=== PATIENT | female | born 1965 | race Caucasian/White ===

== ENCOUNTER 2017-05-15 19:59 | Emergency (ER) | payer MEDICAID, MEDICARE, SELFPAY ==
[~2017-05-15] VITALS: Ht 157.5 cm; Wt 63.2 kg
[~2017-05-15 19:59] MED LIST: CEFT250T OR; COMBVENT INH; MAGN500T2 OR
[2017-05-15] MEDS ORDERED: dexameTHASONE 20 MG/5 ML VIAL (J1100) IV ONE (21:30)
[2017-05-15] MEDS ORDERED: IPRATROPIUM 0.5MG/ALBUTEROL 2.5MG INH SOL UD 3ML (DUONEB)(J7620) NEB ONE (21:30)
[2017-05-15 21:44] LABS: ANION GAP 12 MEQ/L (8-16); BLOOD UREA NITROGEN 6 MG/DL (7-18); CALCIUM LEVEL 9.2 MG/DL (8.5-10.1); CARBON DIOXIDE LEVEL 22 MEQ/L (21-32); CHLORIDE LEVEL 108 MEQ/L (98-107); CREATININE FOR GFR 0.51 MG/DL (0.55-1.02); GLOMERULAR FILTRATION RATE > 60.0 (>51); GLUCOSE, FASTING 121 MG/DL (70-105); POTASSIUM SERUM 3.2 MEQ/L (3.5-5.1); SODIUM LEVEL 142 MEQ/L (136-145)
[2017-05-15 21:46] LABS: BASO % 0.7 % (0.0-1.0); EOS % 0.7 % (0.0-3.0); LARGE UNSTAINED CELL # 0.4 K/mm3 (0.0-0.4); LARGE UNSTAINED CELL % 7.5 % (0.0-4.0); LYMPH # 1.5 K/mm3 (1.5-4.5); LYMPH % 29.9 % (24.0-44.0); MEAN CORPUSCULAR HGB CONC 35.9 g/dl (32.0-36.5); MEAN CORPUSCULAR VOLUME 94.5 fl (80.0-96.0); MONO # 0.2 K/mm3 (0.0-0.8); MONO % 3.6 % (0.0-5.0); NEUTROPHILS # 2.9 K/mm3 (1.8-7.7); NEUTROPHILS % 57.7 % (36.0-66.0); PLATELET COUNT, AUTOMATED 216 k/mm3 (150-450); RED CELL DISTRIBUTION WIDTH 13.1 % (11.5-14.5); WHITE BLOOD COUNT 5.1 K/mm3 (4.0-10.0)
[2017-05-15 21:47] LABS: INR 0.95
[2017-05-15 22:21] VITALS: O2SAT 95
[2017-05-15 22:29] LABS: ABG BASE EXCESS -4.8 (-2.0-2.0); ABG HCO3 18.4 MEQ/L (22.0-26.0); ABG PARTIAL PRESSURE CO2 29.9 mmHg (35.0-45.0); ABG PARTIAL PRESSURE O2 74.3 mmHg (75.0-100.0); ABG STANDARD HCO3 20.5 MEQ/L (22.0-26.0); ABG TOTAL CO2 19.4 MEQ/L (22.0-29.0); ABG pH (ARTERIAL) 7.408 UNITS (7.350-7.450)
[2017-05-15] MEDS ORDERED: ISOVUE-370 76% 100ML VIAL (Q9967) As Ordered ONE (22:57)
[2017-05-15] MEDS ORDERED: guaiFENesin DM LIQ 10ML UD PO ONE (23:30)
[2017-05-15 23:40] VITALS: BP 124/83
[2017-05-16] MEDS ORDERED: NORCO, ANEXSIA 5/325MG TABLET (HYDROcodone/ACETAMINOPHEN) PO ONE (00:45)
[2017-05-16] MEDS ORDERED: PRED20TA PO (00:49)
--- NOTE | 2017-05-16 00:50 | REPUSA ---
CLINICAL HISTORY: Suspected left pulmonary mass. TECHNIQUE: Multiple axial CT images were obtained through the thorax with IV contrast material. COMMENTS: Comparison is made to the prior exam performed on 01/05/2011. Complete dissolution of right lower lobe pulmonary consolidation/infiltrates. There is no evidence of pleural or parenchymal mass. There are no pleural effusions. There is no evid ence of hilar or mediastinal lymphadenopathy. The heart and great vessels are within normal limits. The visualized portions of the liver are of uniform attenuation without mass or defect. There is no i ntra or extrahepatic biliary ductal dilatation. The spleen is unremarkable. The visualized pancreas i s of normal contour and attenuation characteristics. There is no evidence of adrenal mass. The visual ized portions of the kidneys present no abnormalities. The bony structures are free of lytic or blastic lesions. Post contrast images demonstrate no evidence for abnormal enhancement. IMPRESSION: Complete resolution of right lower lobe pulmonary consolidation/infiltrates. Thank you for your kind referral of this patient.
--- NOTE | 2017-05-16 07:43 | REP ---
PA and lateral chest: Comparison is 08/19/2016. The lung rodrigez are clear. The cardiac size is normal The shayan, mediastinum, and bony thorax are unremarkable. Impression: Negative PA and lateral chest. There is no interval change. Signed by Federico Colon MD 05/16/2017 07:36 A
--- NOTE | 2017-05-16 08:28 | ECGEPIP ---
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
== END 2017-05-16 01:33 | disposition home or self-care (01) ==
LOC: EDBD 19:59 → M ED 19:59
DX: J44.9 Chronic obstructive pulmonary disease, unspecified (principal); Z88.0 Allergy status to penicillin; Z88.8 Allergy status to other drugs, medicaments and biological substances; F17.210 Nicotine dependence, cigarettes, uncomplicated
CPT/HCPCS: 36600; 71020; 71260; 80048; 82550; 82553; 82803; 85025; 85610; 85730; 93005; 94640; 96374; 99284; J1100; Q9967

== ENCOUNTER 2017-08-29 19:49 | Emergency (ER) | payer SELFPAY ==
[2017-08-29 21:10] LABS: BEDSIDE GLUCOSE 102 MG/DL (70-105)
== END 2017-08-29 22:08 | disposition home or self-care (01) ==
LOC: M ED 19:49
DX: F10.220 Alcohol dependence with intoxication, uncomplicated (principal); I10 Essential (primary) hypertension; Z91.14 Patient's other noncompliance with medication regimen; F17.210 Nicotine dependence, cigarettes, uncomplicated
CPT/HCPCS: 99283

== ENCOUNTER 2017-11-16 03:03 | Inpatient (IN) | payer SELFPAY ==
[2017-11-16] MEDS: NS 1,000 ML IV ×2 (04:30→09:17)
[2017-11-16 04:47] LABS: BASO # 0.1 10^3/uL (0.0-0.2); BASO % 0.6 % (0.0-1.0); EOS # 0.1 10^3/uL (0.0-0.50); EOS % 1.2 % (0.0-3.0); HEMATOCRIT 46.2 % (36.0-47.0); HEMOGLOBIN 15.7 g/dl (12.0-16.0); IMMATURE GRANULOCYTE % 0.2 % (0-3.0); LYMPH # 2.6 10^3/uL (1.5-4.5); LYMPH % 31.8 % (24.0-44.0); MEAN CORPUSCULAR HEMOGLOBIN 31.7 pg (27.0-33.0); MEAN CORPUSCULAR VOLUME 93.3 fl (80.0-96.0); MONO # 0.6 10^3/uL (0.0-0.8); NEUTROPHILS # 4.8 10^3/uL (1.8-7.7); NEUTROPHILS % 59.2 % (36.0-66.0); PLATELET COUNT, AUTOMATED 300 10^3/uL (150-450); RED BLOOD COUNT 4.95 10^6/uL (4.00-5.40); RED CELL DISTRIBUTION WIDTH 12.7 % (11.5-14.5); WHITE BLOOD COUNT 8.2 10^3/uL (4.0-10.0)
[2017-11-16 05:11] LABS: ALBUMIN 3.6 GM/DL (3.2-5.2); ALBUMIN/GLOBULIN RATIO 0.97 (1.00-1.93); ALKALINE PHOSPHATASE 137 U/L (45-117); ALT/SGPT 310 U/L (12-78); ANION GAP 10 MEQ/L (8-16); AST/SGOT 212 U/L (7-37); BILIRUBIN,DIRECT 0.2 MG/DL (0.0-0.2); BILIRUBIN,TOTAL 0.4 MG/DL (0.2-1.0); BLOOD UREA NITROGEN 4 MG/DL (7-18); CALCIUM LEVEL 8.5 MG/DL (8.5-10.1); CARBON DIOXIDE LEVEL 23 MEQ/L (21-32); CHLORIDE LEVEL 109 MEQ/L (98-107); CPK CREATINE PHOSPHOKINASE 49 U/L (26-192); CREATININE FOR GFR 0.54 MG/DL (0.55-1.30); ETHYL ALCOHOL (ETHANOL) 0.245 % (0.000-0.010); GLOMERULAR FILTRATION RATE > 60.0 (>51); GLUCOSE, FASTING 108 MG/DL (70-100); POTASSIUM SERUM 3.5 MEQ/L (3.5-5.1); SALICYLATE LEVEL 5.5 MG/DL (5.0-30.0); SODIUM LEVEL 142 MEQ/L (136-145); TOTAL PROTEIN 7.3 GM/DL (6.4-8.2); TROPONIN I < 0.02 NG/ML (< 0.10)
[2017-11-16 05:16] LABS: AMMONIA 36 uMOL/L (<32)
[2017-11-16 05:16] LABS: CK-MB VALUE MASS 1.6 NG/ML (<3.6); MB/CK RELATIVE INDEX 3.26 (< OR =4)
[2017-11-16 05:22] LABS: ACETAMINOPHEN LEVEL < 2.0 UG/ML (10.0-30.0)
[2017-11-16 05:39] LABS: INR 0.99; PROTHROMBIN TIME 13.2 SECONDS (12.4-14.5)
[2017-11-16 05:40] LABS: PARTIAL THROMBOPLASTIN TIME 36.6 SECONDS (26.8-37.9)
[2017-11-16 06:12] LABS: AMPHETAMINES LEVEL URINE NEGATIVE (NEGATIVE); BARBITURATES URINE NEGATIVE (NEGATIVE); BENZODIAZEPINES URINE NEGATIVE (NEGATIVE); CANNABINOIDS URINE NEGATIVE (NEGATIVE); COCAINE METABOLITE URINE NEGATIVE (NEGATIVE); METHADONE URINE NEGATIVE (NEGATIVE); OPIATES URINE NEGATIVE (NEGATIVE); PHENCYCLIDINE URINE NEGATIVE (NEGATIVE)
[2017-11-16 08:31] LABS: ALBUMIN 3.5 GM/DL (3.2-5.2); ALBUMIN/GLOBULIN RATIO 0.95 (1.00-1.93); ALKALINE PHOSPHATASE 135 U/L (45-117); ALT/SGPT 329 U/L (12-78); AST/SGOT 253 U/L (7-37); BILIRUBIN,DIRECT 0.1 MG/DL (0.0-0.2); BILIRUBIN,TOTAL 0.3 MG/DL (0.2-1.0); TOTAL PROTEIN 7.2 GM/DL (6.4-8.2)
[2017-11-16] MEDS: OXAZEPAM 10 MG CAP PO (10:34)
[2017-11-16] MEDS: MULTIVITAMIN -ADULT INJECTION 10 ML, THIAMINE INJection 100 MG, FOLIC ACID 1 MG in NS 1... IV (11:00)
[2017-11-16] MEDS ORDERED: NICOTINE POLACRILEX 2 MG GUM PO (13:00)
[2017-11-16] MEDS: NICOTINE 7 MG/24 HR TRANSDERMAL TD (15:00)
[2017-11-16 16:06] LABS: AMMONIA 28 uMOL/L (<32)
[2017-11-16 16:08] LABS: ALBUMIN 3.1 GM/DL (3.2-5.2); ALBUMIN/GLOBULIN RATIO 0.91 (1.00-1.93); ALKALINE PHOSPHATASE 125 U/L (45-117); ALT/SGPT 293 U/L (12-78); AST/SGOT 211 U/L (7-37); BILIRUBIN,DIRECT 0.1 MG/DL (0.0-0.2); BILIRUBIN,TOTAL 0.3 MG/DL (0.2-1.0); TOTAL PROTEIN 6.5 GM/DL (6.4-8.2)
[2017-11-16] MEDS: HEPARIN SOD (PORCINE) 5000 UNITS/ML VIAL SQ (18:41)
[2017-11-17] MEDS: HEPARIN SOD (PORCINE) 5000 UNITS/ML VIAL SQ ×2 (00:17→07:38)
[2017-11-17 06:34] LABS: HEMOGLOBIN 13.8 g/dl (12.0-16.0); MEAN CORPUSCULAR HEMOGLOBIN 31.7 pg (27.0-33.0); MEAN CORPUSCULAR HGB CONC 33.7 g/dl (32.0-36.5); PLATELET COUNT, AUTOMATED 273 10^3/uL (150-450); RED BLOOD COUNT 4.36 10^6/uL (4.00-5.40); RED CELL DISTRIBUTION WIDTH 12.7 % (11.5-14.5); WHITE BLOOD COUNT 5.3 10^3/uL (4.0-10.0)
[2017-11-17 06:56] LABS: ALBUMIN 2.9 GM/DL (3.2-5.2); ALBUMIN/GLOBULIN RATIO 0.85 (1.00-1.93); ALKALINE PHOSPHATASE 120 U/L (45-117); ALT/SGPT 228 U/L (12-78); ANION GAP 6 MEQ/L (8-16); AST/SGOT 132 U/L (7-37); BILIRUBIN,DIRECT 0.2 MG/DL (0.0-0.2); BILIRUBIN,TOTAL 0.6 MG/DL (0.2-1.0); BLOOD UREA NITROGEN 6 MG/DL (7-18); CALCIUM LEVEL 8.5 MG/DL (8.5-10.1); CARBON DIOXIDE LEVEL 25 MEQ/L (21-32); CHLORIDE LEVEL 112 MEQ/L (98-107); CHOLESTEROL LEVEL 166 MG/DL (<200); CHOLESTEROL RISK RATIO 4.368 (<5); CREATININE FOR GFR 0.59 MG/DL (0.55-1.30); GLOMERULAR FILTRATION RATE > 60.0 (>51); GLUCOSE, FASTING 98 MG/DL (70-100); HDL CHOLESTEROL 38 MG/DL (>40); NON-HDL-C 128 MG/DL; POTASSIUM SERUM 3.4 MEQ/L (3.5-5.1); SODIUM LEVEL 143 MEQ/L (136-145); TOTAL PROTEIN 6.3 GM/DL (6.4-8.2); TRIGLYCERIDES LEVEL 125 MG/DL (<150)
[2017-11-17] MEDS: cloNIDine 0.2 MG TAB PO (07:37)
[2017-11-17] MEDS: amLODIPine 5 MG TAB PO (07:37)
[2017-11-17] MEDS: OXAZEPAM 15 MG CAP PO (07:38)
[2017-11-17] MEDS: THIAMINE 100 MG TAB PO (07:38)
[2017-11-17] MEDS: FOLIC ACID 1 MG TAB PO (07:39)
[2017-11-17] MEDS: MULTIVITAMINS/MINERALS THERAP 1 TAB PO ×2 (07:39→09:00)
[2017-11-17] MEDS: NICOTINE 7 MG/24 HR TRANSDERMAL TD (09:00)
[2017-11-18 10:31] LABS: HEPATITIS B SURFACE ANTIGEN NEGATIVE (NEGATIVE)
[2017-11-18 10:56] LABS: HEPATITIS B CORE ANTIBODY IGM NEGATIVE (NEGATIVE)
[2017-11-18 10:59] LABS: HEPATITIS A ANTIBODY IGM NEGATIVE (NEGATIVE)
[2017-11-18 11:08] LABS: HEPATITIS C VIRUS ABY INDEX > 11.0 INDEX (<0.8)
== END 2017-11-17 11:21 | disposition home or self-care (01) | DRG 280 ==
LOC: M ED 03:03 → M ED INP 09:13 → M MSPAV 16:18
DX: R94.5 Abnormal results of liver function studies (principal); I10 Essential (primary) hypertension; K70.10 Alcoholic hepatitis without ascites; F10.129 Alcohol abuse with intoxication, unspecified; M25.532 Pain in left wrist; F17.210 Nicotine dependence, cigarettes, uncomplicated; Z88.0 Allergy status to penicillin; Z88.6 Allergy status to analgesic agent

== ENCOUNTER 2017-12-26 19:34 | Emergency (ER) | payer MEDICARE, SELFPAY ==
[2017-12-26 20:45] LABS: ANION GAP 12 MEQ/L (8-16); BLOOD UREA NITROGEN 10 MG/DL (7-18); CALCIUM LEVEL 9.2 MG/DL (8.5-10.1); CARBON DIOXIDE LEVEL 22 MEQ/L (21-32); CHLORIDE LEVEL 111 MEQ/L (98-107); CREATININE FOR GFR 0.73 MG/DL (0.55-1.30); ETHYL ALCOHOL (ETHANOL) 0.328 % (0.000-0.010); GLOMERULAR FILTRATION RATE > 60.0 (>51); GLUCOSE, FASTING 110 MG/DL (70-100); POTASSIUM SERUM 4.1 MEQ/L (3.5-5.1); SODIUM LEVEL 145 MEQ/L (136-145)
[2017-12-26] MEDS: MULTIVITAMIN -ADULT INJECTION 10 ML, THIAMINE INJection 100 MG, FOLIC ACID 1 MG in NS 1... IV (21:14)
== END 2017-12-26 21:52 | disposition home or self-care (01) ==
LOC: M ED 19:34
DX: F10.20 Alcohol dependence, uncomplicated (principal); F10.129 Alcohol abuse with intoxication, unspecified; Z88.0 Allergy status to penicillin; Z88.6 Allergy status to analgesic agent
CPT/HCPCS: J3411

== ENCOUNTER 2018-07-24 11:49 | Emergency (ER) | payer SELFPAY, MEDICAID, MEDICARE ==
[2018-07-24 14:11] LABS: INFLUENZA A AMPLIFICATION NEGATIVE (NEGATIVE); INFLUENZA B AMPLIFICATION NEGATIVE (NEGATIVE)
== END 2018-07-24 14:24 | disposition home or self-care (01) ==
LOC: M ED 11:49
DX: J06.9 Acute upper respiratory infection, unspecified (principal); I10 Essential (primary) hypertension; E11.9 Type 2 diabetes mellitus without complications; F41.9 Anxiety disorder, unspecified; H54.3 Unqualified visual loss, both eyes; Z88.0 Allergy status to penicillin; Z88.8 Allergy status to other drugs, medicaments and biological substances
CPT/HCPCS: 71046

== ENCOUNTER 2018-10-18 12:21 | Emergency (ER) | payer MEDICAID, SELFPAY ==
[~2018-10-18] VITALS: Ht 157.5 cm; Wt 63.6 kg
[~2018-10-18 12:21] MED LIST changes: +MUCI600T37 PO; +PRED20TA PO
[2018-10-18] MEDS ORDERED: methylPREDNISolone INJ 125 MG/2 ML VIAL (J2930) IV ONE (12:45)
[2018-10-18] MEDS ORDERED: IPRATROPIUM 0.5MG/ALBUTEROL 2.5MG INH SOL UD 3ML (DUONEB)(J7620) NEB ONE (12:45)
[2018-10-18] MEDS ORDERED: ACETAMINOPHEN 325 MG TAB PO ONE (12:45)
[2018-10-18 12:52] LABS: BASO # 0.1 10^3/uL (0.0-0.2); BASO % 0.6 % (0.0-1.0); EOS % 0.3 % (0.0-3.0); HEMATOCRIT 44.7 % (36.0-47.0); HEMOGLOBIN 15.3 g/dl (12.0-15.5); LYMPH % 25.5 % (24.0-44.0); MEAN CORPUSCULAR HEMOGLOBIN 31.9 pg (27.0-33.0); MEAN CORPUSCULAR HGB CONC 34.2 g/dl (32.0-36.5); MEAN CORPUSCULAR VOLUME 93.1 fl (80.0-96.0); MONO # 0.8 10^3/uL (0.0-0.8); MONO % 10.3 % (0.0-5.0); NEUTROPHILS # 4.9 10^3/uL (1.8-7.7); NEUTROPHILS % 62.8 % (36.0-66.0); PLATELET COUNT, AUTOMATED 272 10^3/uL (150-450); WHITE BLOOD COUNT 7.9 10^3/uL (4.0-10.0)
[2018-10-18] MEDS ORDERED: ACETAMINOPHEN/CODEINE 300MG/30MG 12.5 ML UDC PO ONE (13:00)
[2018-10-18] MEDS ORDERED: ONDANSETRON 4MG/2ML VIAL (J2405) IV ONE (13:00)
[2018-10-18 13:04] LABS: INR 0.98; PROTHROMBIN TIME 13.1 SECONDS (12.1-14.4)
--- NOTE | 2018-10-18 13:10 | REP ---
PA and lateral chest: Comparison is 07/24/2018. The the patient is rotated. The lung rodrigez are clear. Cardiac size is normal. The shayan, mediastinum, skeletal structures are unremarkable. Impression: Negative PA and lateral chest. There is no interval change. Electronically Signed by Federico Colon MD 10/18/2018 01:02 P
[2018-10-18 13:19] LABS: BLOOD UREA NITROGEN 7 MG/DL (7-18); CALCIUM LEVEL 8.6 MG/DL (8.5-10.1); CARBON DIOXIDE LEVEL 21 MEQ/L (21-32); CHLORIDE LEVEL 107 MEQ/L (98-107); CREATININE FOR GFR 0.59 MG/DL (0.55-1.30); GLOMERULAR FILTRATION RATE > 60.0 (>51); GLUCOSE, FASTING 102 MG/DL (70-100); POTASSIUM SERUM 4.1 MEQ/L (3.5-5.1); SODIUM LEVEL 142 MEQ/L (136-145)
[2018-10-18 13:23] LABS: INFLUENZA A AMPLIFICATION NEGATIVE (NEGATIVE); INFLUENZA B AMPLIFICATION NEGATIVE (NEGATIVE)
[2018-10-18 13:24] LABS: ABG BASE EXCESS -4.4 (-2.0-2.0); ABG HCO3 19.3 MEQ/L (22.0-26.0); ABG O2 SATURATION 92.6 % (95.0-99.0); ABG PARTIAL PRESSURE CO2 32.3 mmHg (35.0-45.0); ABG PARTIAL PRESSURE O2 68.8 mmHg (75.0-100.0); ABG STANDARD HCO3 20.7 MEQ/L (22.0-26.0); ABG TOTAL CO2 20.3 MEQ/L (22.0-29.0); ABG pH (ARTERIAL) 7.395 UNITS (7.350-7.450)
[2018-10-18] MEDS ORDERED: AVEL1TAB3 PO (13:47)
[2018-10-18] MEDS ORDERED: TESS100C PO (13:47)
[2018-10-18] MEDS ORDERED: PROAAER10 INH (13:47)
[2018-10-18 14:00] VITALS: BP 152/85
== END 2018-10-18 14:10 | disposition home or self-care (01) ==
LOC: EDBD 12:21 → M ED 12:21
DX: J98.01 Acute bronchospasm (principal); J44.1 Chronic obstructive pulmonary disease with (acute) exacerbation; Z85.3 Personal history of malignant neoplasm of breast; F10.10 Alcohol abuse, uncomplicated; Z72.0 Tobacco use; Z88.6 Allergy status to analgesic agent; Z88.0 Allergy status to penicillin
CPT/HCPCS: 36600; 71046; 80048; 82803; 85025; 85610; 87040; 87502; 94640; 96374; 96375; 99284; J2405; J2930

== ENCOUNTER 2019-07-30 22:31 | Emergency (ER) | payer MEDICAID, SELFPAY ==
[~2019-07-30 22:31] MED LIST changes: +AVEL1TAB3 PO; +PROAAER10 INH; +TESS100C PO
[2019-07-30 22:43] VITALS: BP 159/87
[2019-07-30] MEDS ORDERED: methylPREDNISolone INJ 125 MG/2 ML VIAL (J2930) IV ONE (22:45)
[2019-07-30 23:04] LABS: BASO # 0.1 10^3/uL (0.0-0.2); BASO % 0.7 % (0.0-1.0); EOS # 0.1 10^3/uL (0.0-0.5); EOS % 0.9 % (0.0-3.0); HEMATOCRIT 48.7 % (36.0-47.0); HEMOGLOBIN 16.3 g/dl (12.0-15.5); LYMPH % 57.2 % (24.0-44.0); MEAN CORPUSCULAR HGB CONC 33.5 g/dl (32.0-36.5); MEAN CORPUSCULAR VOLUME 92.6 fl (80.0-96.0); MONO # 0.4 10^3/uL (0.0-0.8); MONO % 5.9 % (0.0-5.0); NEUTROPHILS # 2.4 10^3/uL (1.5-8.5); PLATELET COUNT, AUTOMATED 208 10^3/uL (150-450); RED BLOOD COUNT 5.26 10^6/uL (4.00-5.40); WHITE BLOOD COUNT 6.9 10^3/uL (4.0-10.0)
[2019-07-30] MEDS: IPRATROPIUM 0.5MG/ALBUTEROL 2.5MG INH SOL UD 3ML (DUONEB)(J7620) NEB PRN ×2 (23:07→23:55)
[2019-07-30 23:21] LABS: INR 1.04; PROTHROMBIN TIME 13.3 SECONDS (11.8-14.0)
[2019-07-30 23:36] LABS: ALBUMIN 2.8 GM/DL (3.2-5.2); ALT/SGPT 167 U/L (12-78); BILIRUBIN,DIRECT < 0.1 MG/DL (0.0-0.2); BILIRUBIN,TOTAL 0.2 MG/DL (0.2-1.0); BLOOD UREA NITROGEN 6 MG/DL (7-18); CALCIUM LEVEL 7.4 MG/DL (8.5-10.1); CARBON DIOXIDE LEVEL 22 MEQ/L (21-32); CHLORIDE LEVEL 112 MEQ/L (98-107); CK-MB VALUE MASS 1.5 NG/ML (<3.6); CPK CREATINE PHOSPHOKINASE 30 U/L (26-192); CREATININE FOR GFR 0.47 MG/DL (0.55-1.30); GLOMERULAR FILTRATION RATE > 60.0 (>51); GLUCOSE, FASTING 88 MG/DL (70-100); POTASSIUM SERUM 3.2 MEQ/L (3.5-5.1); SODIUM LEVEL 142 MEQ/L (136-145); TOTAL PROTEIN 6.3 GM/DL (6.4-8.2); TROPONIN I < 0.02 NG/ML (< 0.10)
[2019-07-30 23:40] LABS: INFLUENZA A AMPLIFICATION NEGATIVE (NEGATIVE); INFLUENZA B AMPLIFICATION NEGATIVE (NEGATIVE)
[2019-07-31] MEDS ORDERED: POTASSIUM CHLORIDE 10 MEQ SR TABLET PO ONE
--- NOTE | 2019-07-31 05:49 | ECGEPIP ---
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
--- NOTE | 2019-07-31 08:23 | REP ---
Clinical: Cough and dyspnea . Comparison: 10/18/2018 . Technique: PA and lateral. Findings: The mediastinum and cardiac silhouette are normal. The lung rodrigez are clear and without acute consolidation, effusion, or pneumothorax. The skeletal structures are intact and normal. Impression: 1. No acute cardiopulmonary process. Electronically Signed by Blake Mack MD 07/31/2019 08:16 A
== END 2019-07-31 00:26 | disposition left against medical advice (07) ==
LOC: M ED 22:31
DX: R05 Cough (principal); I10 Essential (primary) hypertension; F10.10 Alcohol abuse, uncomplicated; Z87.19 Personal history of other diseases of the digestive system; F17.200 Nicotine dependence, unspecified, uncomplicated; Z88.0 Allergy status to penicillin; Z88.6 Allergy status to analgesic agent; Z53.21 Procedure and treatment not carried out due to patient leaving prior to being seen by health care provider
CPT/HCPCS: 36415; 71046; 80048; 80076; 82550; 82553; 84443; 84484; 85025; 85610; 87502; 93005; 93041; 94640; 94760; 96374; 99284; J2930

== ENCOUNTER 2019-08-08 22:39 | Emergency (ER) | payer SELFPAY | END 2019-08-08 22:59 | disposition left against medical advice (07) | LOC: M ED 22:39 | DX: R68.89 Other general symptoms and signs (principal); Z53.21 Procedure and treatment not carried out due to patient leaving prior to being seen by health care provider ==

== ENCOUNTER 2019-09-28 19:49 | Emergency (ER) | payer SELFPAY ==
[~2019-09-28] VITALS: Ht 160 cm; Wt 63.6 kg
[2019-09-28 21:05] VITALS: BP 148/87
--- NOTE | 2019-09-28 22:10 | REPVR ---
PROCEDURE INFORMATION: Exam: CT Chest Without Contrast Exam date and time: 09/28/2019 9:55 PM Age: 54 years old Clinical indication: Chest pain; Additional info: Ant rib eval TECHNIQUE: Imaging protocol: Computed tomography of the chest without contrast. 3D rendering: MIP and/or 3D reconstructed images were created by the technologist. Radiation optimization: All CT scans at this facility use at least one of these dose optimization techniques: automated exposure control; mA and/or kV adjustment per patient size (includes targeted exams where dose is matched to clinical indication); or iterative reconstruction. COMPARISON: CT Chest with contrast 05/15/2017 11:48 PM FINDINGS: Lungs: Calcified granuloma superior segment right lower lobe. Scattered noncalcified peripheral pulmonary parenchymal nodules measuring less than 3 mm, findings likely postinflammatory. No follow-up suggested. Pleural space: Unremarkable. No pneumothorax. No pleural effusion. Heart: There is mild atherosclerotic calcification of the coronary arteries. Aorta: The aorta demonstrates mild atherosclerotic calcification. Lymph nodes: Unremarkable. No enlarged lymph nodes. Liver: Hepatic steatosis. Bones/joints: Unremarkable. No acute fracture. Soft tissues: Unremarkable. IMPRESSION: 1. No acute findings. 2. Findings consistent with remote intrathoracic granulomatous infection. Electronically signed by: Oscar Blue On 09/28/2019 22:09:50 PM
--- NOTE | 2019-09-29 02:10 | REP ---
Clinical: Right shoulder pain . Technique: Internal rotation, external rotation, and Y view. Findings: No acute fracture or dislocation. The acromioclavicular and glenohumeral joints are intact. No periarticular calcifications or degenerative changes are appreciated. Sub acromial space is normal. Surrounding soft tissues are unremarkable. Impression: Normal right shoulder radiographs. Electronically Signed by Blake Mack MD 09/29/2019 02:01 A
--- NOTE | 2019-09-29 02:11 | REP ---
Clinical: Dyspnea . Comparison: 07/30/2019 . Technique: PA and lateral. Findings: The mediastinum and cardiac silhouette are normal. The lung rodrigez are clear and without acute consolidation, effusion, or pneumothorax. The skeletal structures are intact and normal. Impression: 1. No acute cardiopulmonary process. Electronically Signed by Blake Mack MD 09/29/2019 02:02 A
== END 2019-09-28 22:49 | disposition left against medical advice (07) ==
LOC: M ED 19:49 → EDBD 19:49 → M ED 22:49
DX: S20.219A Contusion of unspecified front wall of thorax, initial encounter (principal); W00.9XXA Unspecified fall due to ice and snow, initial encounter; Y92.410 Unspecified street and highway as the place of occurrence of the external cause; Y93.9 Activity, unspecified; Y99.9 Unspecified external cause status; J44.9 Chronic obstructive pulmonary disease, unspecified; F10.20 Alcohol dependence, uncomplicated; F17.200 Nicotine dependence, unspecified, uncomplicated; Z88.0 Allergy status to penicillin; Z88.6 Allergy status to analgesic agent; Z53.21 Procedure and treatment not carried out due to patient leaving prior to being seen by health care provider

== ENCOUNTER 2019-09-30 20:50 | Emergency (ER) | payer SELFPAY ==
[~2019-09-30] VITALS: Ht 160 cm; Wt 6.6 kg
[2019-09-30 21:09] VITALS: BP 159/93
== END 2019-09-30 22:51 | disposition left against medical advice (07) ==
LOC: M ED 20:50
DX: Z53.21 Procedure and treatment not carried out due to patient leaving prior to being seen by health care provider (principal)

== ENCOUNTER 2019-10-07 21:33 | Emergency (ER) | payer SELFPAY ==
[~2019-10-07] VITALS: Ht 157.5 cm; Wt 65.7 kg
[2019-10-07 23:29] VITALS: BP 116/84
--- NOTE | 2019-10-08 07:49 | REP ---
Clinical: Trauma . Comparison: 09/28/2019 . Technique: PA and lateral. Findings: The mediastinum and cardiac silhouette are normal. The lung rodrigez are clear and without acute consolidation, effusion, or pneumothorax. The skeletal structures are intact and normal. Impression: 1. No acute cardiopulmonary process. Electronically Signed by Blake Mack MD 10/08/2019 07:40 A
--- NOTE | 2019-10-08 07:50 | REP ---
Clinical: Trauma. Technique: AP and lateral views of the right humerus. Findings: No acute fracture or dislocation. Skeletal structures, joint spaces, and surrounding soft tissues are normal. Impression: No acute fracture or dislocation. Electronically Signed by Blake Mack MD 10/08/2019 07:42 A
--- NOTE | 2019-10-08 07:50 | REP ---
Clinical: Trauma. Technique: AP and lateral views of the right forearm. Findings: No acute fracture or dislocation. Skeletal structures, joint spaces, and surrounding soft tissues are normal. No subcutaneous emphysema or foreign body. Impression: No acute fracture or dislocation. Electronically Signed by Blake Mack MD 10/08/2019 07:42 A
--- NOTE | 2019-10-08 07:52 | REP ---
Clinical: Trauma . Technique: Internal rotation, external rotation, and Y view right shoulder . Findings: No acute fracture or dislocation. The acromioclavicular and glenohumeral joints are intact. No periarticular calcifications or degenerative changes are appreciated. Sub acromial space is normal. Surrounding soft tissues are unremarkable. Impression: Normal right shoulder radiographs. Electronically Signed by Blake Mack MD 10/08/2019 07:43 A
== END 2019-10-07 23:38 | disposition home or self-care (01) ==
LOC: M ED 21:33
DX: S40.011A Contusion of right shoulder, initial encounter (principal); W00.9XXA Unspecified fall due to ice and snow, initial encounter; Y92.9 Unspecified place or not applicable; Y93.9 Activity, unspecified; Y99.9 Unspecified external cause status; I10 Essential (primary) hypertension; F10.10 Alcohol abuse, uncomplicated; Z87.19 Personal history of other diseases of the digestive system; Z88.0 Allergy status to penicillin; Z88.6 Allergy status to analgesic agent

== ENCOUNTER 2020-06-14 23:53 | Emergency (ER) | payer SELFPAY ==
[~2020-06-14] VITALS: Ht 160 cm; Wt 59.1 kg
[2020-06-15] MEDS ORDERED: AZIT-12 PO (00:54)
[2020-06-15] MEDS ORDERED: PRED20TA PO (00:54)
[2020-06-15] MEDS ORDERED: predniSONE 20 MG TAB PO ONE (01:00)
[2020-06-15] MEDS ORDERED: AZITHROMYCIN 250MG TABLET PO ONE (01:00)
[2020-06-15] MEDS ORDERED: ALBUTEROL 90 MCG/ACT 8GM HFA INHALER INH ONE (01:00)
[2020-06-15 01:07] VITALS: BP 135/93
== END 2020-06-15 01:11 | disposition home or self-care (01) ==
LOC: M ED 23:53
DX: J20.9 Acute bronchitis, unspecified (principal); S50.869A Insect bite (nonvenomous) of unspecified forearm, initial encounter; W57.XXXA Bitten or stung by nonvenomous insect and other nonvenomous arthropods, initial encounter; Y92.9 Unspecified place or not applicable; Y93.9 Activity, unspecified; Y99.9 Unspecified external cause status; F17.200 Nicotine dependence, unspecified, uncomplicated; Z88.0 Allergy status to penicillin; Z88.6 Allergy status to analgesic agent

== ENCOUNTER 2020-07-25 18:27 | Emergency (ER) | payer MEDICAID, SELFPAY ==
[~2020-07-25] VITALS: Ht 157.5 cm; Wt 61.4 kg
[~2020-07-25 18:27] MED LIST changes: +AZIT-12 PO
[2020-07-25] MEDS ORDERED: methylPREDNISolone 125MG 2ML VIAL IV ONE (18:45)
[2020-07-25] MEDS: COMBIVENT RESPIMAT 100-20MCG INHALER 4GM INH SCH ×3 (18:50→19:25)
--- NOTE | 2020-07-25 18:55 | REP ---
INDICATION: DYSPNEA/COUGH. COMPARISON: 10/07/2019 FINDINGS: The technique utilized in obtaining the radiograph has magnified the cardiac silhouette and accentuated the interstitial markings. The superior mediastinal structures are midline. The cardiac silhouette is unremarkable in size, shape, and position. The diaphragmatic surfaces of the lungs are regular, and the costophrenic angles are clear. The pulmonary rodrigez are clear. The imaged osseous structures are intact. IMPRESSION: There is no acute cardiopulmonary disease. <Electronically signed by Carlyle Triplett > 07/25/20 [id number]
[2020-07-25 18:59] LABS: BASO % 0.8 % (0.0-1.0); EOS # 0.4 10^3/uL (0.0-0.5); EOS % 7.4 % (0.0-3.0); HEMOGLOBIN 16.9 g/dl (12.0-15.5); LYMPH # 2.1 10^3/uL (1.5-5.0); LYMPH % 43.2 % (24.0-44.0); MEAN CORPUSCULAR HEMOGLOBIN 30.1 pg (27.0-33.0); MEAN CORPUSCULAR HGB CONC 32.5 g/dl (32.0-36.5); MEAN CORPUSCULAR VOLUME 92.5 fl (80.0-96.0); MONO # 0.5 10^3/uL (0.0-0.8); MONO % 10.8 % (0.0-5.0); NEUTROPHILS # 1.8 10^3/uL (1.5-8.5); NEUTROPHILS % 37.6 % (36.0-66.0); PLATELET COUNT, AUTOMATED 226 10^3/uL (150-450); RED BLOOD COUNT 5.62 10^6/uL (4.00-5.40); WHITE BLOOD COUNT 4.7 10^3/uL (4.0-10.0)
[2020-07-25 19:09] LABS: PROTHROMBIN TIME 13.4 SECONDS (12.5-14.3)
[2020-07-25 19:47] LABS: ALBUMIN 3.7 GM/DL (3.2-5.2); ALT/SGPT 190 U/L (12-78); BILIRUBIN,DIRECT 0.3 MG/DL (0.0-0.2); BILIRUBIN,TOTAL 0.6 MG/DL (0.2-1.0); BLOOD UREA NITROGEN 8 MG/DL (7-18); CALCIUM LEVEL 9.1 MG/DL (8.5-10.1); CARBON DIOXIDE LEVEL 26 MEQ/L (21-32); CHLORIDE LEVEL 106 MEQ/L (98-107); CK-MB VALUE MASS 1.9 NG/ML (<3.6); CPK CREATINE PHOSPHOKINASE 35 U/L (26-192); CREATININE FOR GFR 0.61 MG/DL (0.55-1.30); GLOMERULAR FILTRATION RATE > 60.0 (>51); GLUCOSE, FASTING 152 MG/DL (70-100); MB/CK RELATIVE INDEX 5.43 (< OR =4); NT-PRO BNP 197 PG/ML (<125); POTASSIUM SERUM 3.8 MEQ/L (3.5-5.1); SODIUM LEVEL 139 MEQ/L (136-145); TOTAL PROTEIN 8.5 GM/DL (6.4-8.2); TROPONIN I 0.04 NG/ML (< 0.10)
[2020-07-25] MEDS ORDERED: IPRATROPIUM 0.5MG/ALBUTEROL 2.5MG INH SOL UD 3ML (DUONEB) NEB SCH (20:30)
[2020-07-25 22:15] VITALS: BP 136/99
[2020-07-25] MEDS ORDERED: AZITHROMYCIN INJ 500 MG, VIAL MATE ADAPTER 1 EACH in D5W 250 ML IV ONE (22:15)
[2020-07-25] MEDS ORDERED: ZITHTAB PO (22:50)
[2020-07-25] MEDS ORDERED: PROV108A INH (22:50)
[2020-07-25] MEDS ORDERED: PRED20TA PO (22:50)
--- NOTE | 2020-07-26 05:35 | ECGEPIP ---
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
== END 2020-07-25 22:51 | disposition left against medical advice (07) ==
LOC: M ED 18:27
DX: J44.1 Chronic obstructive pulmonary disease with (acute) exacerbation (principal); R00.0 Tachycardia, unspecified; I10 Essential (primary) hypertension; F17.200 Nicotine dependence, unspecified, uncomplicated
CPT/HCPCS: 71045; 80048; 80076; 82550; 82553; 82803; 83605; 83880; 84443; 85025; 85610; 87040; 87486; 87581; 87633; 87798; 93005; 93041; 94640; 96374; 96375; 99285; J0456; J2930

== ENCOUNTER 2020-09-24 20:36 | Emergency (ER) | payer MEDICAID, SELFPAY ==
[~2020-09-24] VITALS: Ht 157.5 cm; Wt 59.1 kg
[~2020-09-24 20:36] MED LIST changes: +PROV108A INH; +ZITHTAB PO
--- OUTSIDE RECORDS SUMMARY | 2020-09-24 20:40 | CCD ---
Author Author [facility] Organization [facility] Address Unknown Phone Unavailable Support Name Relationship Address Phone DISABLED Next Of Kin Unknown Unavailable UE Next Of Kin Unknown Unavailable QUINTIN BRANDON Next Of Kin [address] [place] [address] Re-disclosure Warning The records that you are about to access may contain information from federally-assisted alcohol or drug abuse programs. If such information is present, then the following federally mandated warning applies: This information has been disclosed to you from records protected by federal confidentiality rules (42 CFR part 2). The federal rules prohibit you from making any further disclosure of this information unless further disclosure is expressly permitted by the written consent of the person to whom it pertains or as otherwise permitted by 42 CFR part 2. A general authorization for the release of medical or other information is NOT sufficient for this purpose. The Federal rules restrict any use of the information to criminally investigate or prosecute any alcohol or drug abuse patient.The records that you are about to access may contain highly sensitive health information, the redisclosure of which is protected by Article 27-F of the [facility] Public Health law. If you continue you may have access to information: Regarding HIV / AIDS; Provided by facilities licensed or operated by the [facility] Office of Mental Health; or Provided by the [facility] Office for People With Developmental Disabilities. If such information is present, then the following [facility] mandated warning applies: This information has been disclosed to you from confidential records which are protected by state law. State law prohibits you from making any further disclosure of this information without the specific written consent of the person to whom it pertains, or as otherwise permitted by law. Any unauthorized further disclosure in violation of state law may result in a fine or intermediate sentence or both. A general authorization for the release of medical or other information is NOT sufficient authorization for further disc losure. Insurance Providers Payer name Policy type / Coverage type Policy ID Covered alliance party ID Covered alliance party's relationship to galloway Policy Galloway Plan Information SELF PAY ONLY [id number] SP [id number] MEDICAID [id number] SP [id number] O UNAVAILABLE UNAVAILA BLE MEDICARE [id number] SP [id number] A MEDICAID M [id number] SELF PAY UNAVAILABLE SP UNAVAILA BLE SELF PAY ONLY UNAVAILABLE SP UNAV AILABLE MEDICAID [id number] SP [id number] SELF PAY P UNAVAILABLE UNAVAILA BLE [id number] Results ID Date Data Source [id number] 07/25/2020 06:43:00 PM EST [facility] Name Value Range Interpretation Code Description Data Dee rce(s) Supporting Document(s) SARS-CoV-2 (COVID 19) [place] This lab was ordered by [facility] a nd reported by [facility]. Procedure
[2020-09-24 20:49] VITALS: BP 134/93
[2020-09-24] MEDS ORDERED: methylPREDNISolone 125MG 2ML VIAL IV ONE (21:00)
[2020-09-24] MEDS ORDERED: NS 500 ML IV ONE (21:00)
[2020-09-24] MEDS: MAG SULF 1GM/100ML (MAG RUN) 1 GM in IV 1 EA IV SCH ×2 (21:30→21:40)
[2020-09-24 21:31] LABS: BASO # 0.1 10^3/uL (0.0-0.2); BASO % 1.3 % (0.0-1.0); EOS # 0.4 10^3/uL (0.0-0.5); EOS % 10.2 % (0.0-3.0); HEMATOCRIT 49.4 % (36.0-47.0); HEMOGLOBIN 16.3 g/dl (12.0-15.5); LYMPH # 1.9 10^3/uL (1.5-5.0); LYMPH % 48.7 % (24.0-44.0); MEAN CORPUSCULAR HEMOGLOBIN 30.4 pg (27.0-33.0); MONO # 0.5 10^3/uL (0.0-0.8); MONO % 11.7 % (0.0-5.0); NEUTROPHILS # 1.1 10^3/uL (1.5-8.5); NEUTROPHILS % 28.1 % (36.0-66.0); PLATELET COUNT, AUTOMATED 125 10^3/uL (150-450); RED BLOOD COUNT 5.37 10^6/uL (4.00-5.40); WHITE BLOOD COUNT 3.9 10^3/uL (4.0-10.0)
--- NOTE | 2020-09-24 21:42 | REPVR ---
PROCEDURE INFORMATION: Exam: XR Chest, 1 View Exam date and time: 09/24/2020 9:13 PM Age: 55 years old Clinical indication: Cough; Additional info: Dyspnea/cough TECHNIQUE: Imaging protocol: XR of the chest Views: 1 view. COMPARISON: CR PORTABLE CHEST X-RAY 07/25/2020 6:38 PM FINDINGS: Tubes, catheters and devices: External monitoring devices are present. Lungs: Increased density of the right lung apex is attributed to a fracture of the head of the right clavicle which is demonstrated on CT scan dated 10/04/2019.. Pleural spaces: Unremarkable. No pleural effusion. No pneumothorax. Heart/Mediastinum: Unremarkable. No cardiomegaly. Bones/joints: See "Lungs" finding. IMPRESSION: No acute infiltrates. Electronically signed by: Angie Godwin On 09/24/2020 21:42:26 PM
[2020-09-24 22:02] LABS: ALBUMIN 3.1 GM/DL (3.2-5.2); ALT/SGPT 234 U/L (12-78); BILIRUBIN,DIRECT < 0.1 MG/DL (0.0-0.2); BILIRUBIN,TOTAL 0.3 MG/DL (0.2-1.0); BLOOD UREA NITROGEN 7 MG/DL (7-18); CALCIUM LEVEL 8.4 MG/DL (8.5-10.1); CARBON DIOXIDE LEVEL 23 MEQ/L (21-32); CHLORIDE LEVEL 108 MEQ/L (98-107); CK-MB VALUE MASS 1.6 NG/ML (<3.6); CPK CREATINE PHOSPHOKINASE 110 U/L (26-192); ETHYL ALCOHOL (ETHANOL) 0.322 % (0.000-0.010); GLOMERULAR FILTRATION RATE > 60.0 (>51); GLUCOSE, FASTING 86 MG/DL (70-100); MB/CK RELATIVE INDEX 1.45 (< OR =4); POTASSIUM SERUM 4.6 MEQ/L (3.5-5.1); SODIUM LEVEL 142 MEQ/L (136-145); TOTAL PROTEIN 7.5 GM/DL (6.4-8.2); TROPONIN I < 0.02 NG/ML (< 0.10)
--- OUTSIDE RECORDS SUMMARY | 2020-09-24 22:25 | CCD ---
Author Author [facility] Organization [facility] Address Unknown Phone Unavailable Support Name Relationship Address Phone DISABLED Next Of Kin Unknown Unavailable UE Next Of Kin Unknown Unavailable QUINTIN BRANDON Next Of Kin [address] [place] [address] Re-disclosure Warning The records that [...] is protected by Article 27-F of the [facility] Public Health law. If you continue you may have access to information: Regarding HIV / AIDS; Provided by facilities licensed or operated by the [facility] Office of Mental Health; or Provided by the [facility] Office for People With Developmental Disabilities. If such information is present, then the following [facility] mandated warning applies: This information has been [...] law may result in a fine or correction sentence or both. A general authorization for the release of medical or other information is NOT sufficient authorization for further disc losure. Insurance Providers Payer name Policy type / Coverage type Policy ID Covered democrat ID Covered democrat's relationship to galloway Policy Galloway Plan Information SELF PAY ONLY [id number] SP [id number] MEDICAID [id number] SP [id number] O UNAVAILABLE UNAVAILA BLE MEDICARE [id number] SP [id number] A MEDICAID M [id number] S [id number] SELF PAY UNAVAILABLE SP UNAVAILA BLE SELF PAY ONLY UNAVAILABLE SP UNAV AILABLE MEDICAID [id number] SP [id number] SELF PAY P UNAVAILABLE UNAVAILA BLE [id number] Results ID Date Data Source [id number] 07/25/2020 06:43:00 PM EST [facility] Name Value Range Interpretation Code Description Data Dee rce(s) Supporting Document(s) SARS-CoV-2 (COVID 19) [place] This lab was ordered by [facility] a nd reported by [facility]. Procedure
[2020-09-24 23:20] LABS: RSV AMPLIFICATION NEGATIVE (NEGATIVE)
--- NOTE | 2020-09-25 08:55 | ECGEPIP ---
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
== END 2020-09-25 00:37 | disposition home or self-care (01) ==
LOC: M ED 20:36
DX: F10.129 Alcohol abuse with intoxication, unspecified (principal); J44.1 Chronic obstructive pulmonary disease with (acute) exacerbation; I10 Essential (primary) hypertension; Z88.0 Allergy status to penicillin; Z88.6 Allergy status to analgesic agent
CPT/HCPCS: 71045; 80048; 80076; 82550; 82553; 85025; 87631; 93005; 94760; 96361; 96365; 96375; 99284; G0480; J2930; J3475

== ENCOUNTER 2020-10-06 05:28 | Inpatient (IN) | payer MEDICAID, SELFPAY ==
[~2020-10-06] VITALS: Ht 157.5 cm; Wt 55.3 kg
--- OUTSIDE RECORDS SUMMARY | 2020-10-06 05:33 | CCD ---
Author Author [facility] Organization [facility] Address Unknown Phone Unavailable Support Name Relationship Address Phone DISABLED Next Of Kin Unknown Unavailable UE Next Of Kin Unknown Unavailable VIVIANAQUINTIN HALL Next Of Kin [address] [place], [place] [id number] Re-disclosure Warning The records that you are [...] is protected by Article 27-F of the [facility] Public Health law. If you continue you may have access to information: Regarding HIV / AIDS; Provided by facilities licensed or operated by the [facility] Office of Mental Health; or Provided by the [facility] Office for People With Developmental Disabilities. If such information is present, then the following [facility] mandated warning applies: This information [...] law may result in a fine or fpc sentence or both. A general authorization for the release of medical or other information is NOT sufficient authorization for further disc losure. Insurance Providers Payer name Policy type / Coverage type Policy ID Covered democrat ID Covered democrat's relationship to galloway Policy Galloway Plan Information SELF PAY ONLY [id number] SP [id number] MEDICAID [id number] SP [id number] O UNAVAILABLE UNAVAILA BLE MEDICARE [id number] SP [id number] A MEDICAID M [id number] S [id number] SELF PAY UNAVAILABLE SP UNAVAILA BLE SELF PAY ONLY UNAVAILABLE SP UNAV AILABLE MEDICAID [id number] SP [id number] SELF PAY P UNAVAILABLE UNAVAILA BLE [id number] Results ID Date Data Source [id number] 09/24/2020 10:36:00 PM EST [facility] Name Value Range Interpretation Code Description Data Dee rce(s) Supporting Document(s) SARS coronavirus 2 RNA [Presence] in Res piratory specimen by JAG with probe detection NEGATIVE [facility] This lab was ordered by [facility] a nd reported by [facility]. ID Date Data Source [id number] 09/24/2020 09:25:00 PM EST [facility] Name Value Range Interpretation Code Description Data Dee rce(s) Supporting Document(s) SARS COVID ANTIGEN NEGATIVE [facility] reported by [facility]. ID Date Data Source [id number] 07/25/2020 06:43:00 PM EST [facility] Name Value Range Interpretation Code Description Data Dee rce(s) Supporting Document(s) SARS-CoV-2 (COVID 19) [facility] This lab was ordered by [facility] a nd reported by [facility]. Procedure
[2020-10-06] MEDS ORDERED: dexameTHASONE 20MG/5ML VIAL (J1100 PER 1MG) As Ordered ONE (05:35)
[2020-10-06] MEDS ORDERED: IPRATROPIUM 0.5MG/ALBUTEROL 2.5MG INH SOL UD 3ML (DUONEB) As Ordered ONE (05:36)
[2020-10-06 05:45] LABS: BASO # 0.1 10^3/uL (0.0-0.2); BASO % 0.7 % (0.0-1.0); EOS # 0.1 10^3/uL (0.0-0.5); EOS % 0.7 % (0.0-3.0); HEMATOCRIT 51.1 % (36.0-47.0); LYMPH # 1.5 10^3/uL (1.5-5.0); LYMPH % 20.9 % (24.0-44.0); MEAN CORPUSCULAR HEMOGLOBIN 30.6 pg (27.0-33.0); MEAN CORPUSCULAR HGB CONC 33.3 g/dl (32.0-36.5); MEAN CORPUSCULAR VOLUME 92.1 fl (80.0-96.0); MONO # 0.8 10^3/uL (0.0-0.8); MONO % 10.9 % (0.0-5.0); NEUTROPHILS # 4.7 10^3/uL (1.5-8.5); NEUTROPHILS % 66.1 % (36.0-66.0); PLATELET COUNT, AUTOMATED 203 10^3/uL (150-450); RED BLOOD COUNT 5.55 10^6/uL (4.00-5.40); WHITE BLOOD COUNT 7.1 10^3/uL (4.0-10.0)
[2020-10-06 05:47] VITALS: O2SAT 99
[2020-10-06] MEDS: IPRATROPIUM 0.5MG/ALBUTEROL 2.5MG INH SOL UD 3ML (DUONEB) NEB SCH (05:55)
--- NOTE | 2020-10-06 06:09 | REPVR ---
PROCEDURE INFORMATION: Exam: XR Chest, 1 View Exam date and time: 10/06/2020 5:46 AM Age: 55 years old Clinical indication: Other: Dyspnea; Additional info: Dyspnea/cough TECHNIQUE: Imaging protocol: XR of the chest Views: 1 view. COMPARISON: CR PORTABLE CHEST X-RAY 09/24/2020 9:10 PM FINDINGS: Lungs: Unremarkable. No consolidation. Pleural spaces: Unremarkable. No pleural effusion. No pneumothorax. Heart/Mediastinum: Unremarkable. No cardiomegaly. Bones/joints: Unremarkable. IMPRESSION: No acute findings. Electronically signed by: Renny Montenegro On 10/06/2020 06:09:40 AM
[2020-10-06 06:13] LABS: ALBUMIN 3.5 GM/DL (3.2-5.2); ALT/SGPT 262 U/L (12-78); BILIRUBIN,DIRECT 0.4 MG/DL (0.0-0.2); BILIRUBIN,TOTAL 1.2 MG/DL (0.2-1.0); BLOOD UREA NITROGEN 8 MG/DL (7-18); CARBON DIOXIDE LEVEL 23 MEQ/L (21-32); CHLORIDE LEVEL 104 MEQ/L (98-107); CK-MB VALUE MASS 5.2 NG/ML (<3.6); CPK CREATINE PHOSPHOKINASE 43 U/L (26-192); CREATININE FOR GFR 0.64 MG/DL (0.55-1.30); ETHYL ALCOHOL (ETHANOL) < 0.003 % (0.000-0.010); GLOMERULAR FILTRATION RATE > 60.0 (>51); GLUCOSE, FASTING 194 MG/DL (70-100); MB/CK RELATIVE INDEX 12.09 (< OR =4); NT-PRO BNP 513 PG/ML (<125); POTASSIUM SERUM 4.2 MEQ/L (3.5-5.1); SODIUM LEVEL 138 MEQ/L (136-145); TROPONIN I 0.63 NG/ML (< 0.10)
--- OUTSIDE RECORDS SUMMARY | 2020-10-06 06:26 | CCD ---
Author Author [facility] Organization [facility] Address Unknown Phone Unavailable Support Name Relationship Address Phone DISABLED Next Of Kin Unknown Unavailable UE Next Of Kin Unknown Unavailable VIVIANAQUINTIN HALL Next Of Kin [address] [place], [place] [id number] Re-disclosure Warning The records that you are [...] is protected by Article 27-F of the [facility] Public Health law. If you continue you may have access to information: Regarding HIV / AIDS; Provided by facilities licensed or operated by the [facility] Office of Mental Health; or Provided by the [facility] Office for People With Developmental Disabilities. If such information is present, then the following [facility] mandated warning applies: This information has been [...] law may result in a fine or [place] [facility] sentence or both. A general authorization for the release of medical or other information is NOT sufficient authorization for further disc losure. Insurance Providers Payer name Policy type / Coverage type Policy ID Covered republican ID Covered republican's relationship to galloway Policy Galloway Plan Information SELF PAY ONLY [id number] SP [id number] MEDICAID [id number] SP [id number] O UNAVAILABLE UNAVAILA BLE MEDICARE [id number] SP [id number] A MEDICAID M [id number] SELF PAY UNAVAILABLE SP UNAVAILA BLE SELF PAY ONLY UNAVAILABLE SP UNAV AILABLE MEDICAID [id number] SP [id number] SELF PAY P UNAVAILABLE UNAVAILA BLE [id number] Results ID Date Data Source [id number] 09/24/2020 10:36:00 PM EST [facility] Name Value Range Interpretation Code Description Data Dee rce(s) Supporting Document(s) SARS coronavirus 2 RNA [Presence] in Res piratory specimen by JAG with probe detection NEGATIVE [facility] This lab was ordered by [facility] a nd reported by [facility]. ID Date Data Source [id number] 09/24/2020 09:25:00 PM EST [facility] Name Value Range Interpretation Code Description Data Dee rce(s) Supporting Document(s) SARS COVID ANTIGEN NEGATIVE [facility] by [facility]. ID Date Data Source [id number] 07/25/2020 06:43:00 PM EST [facility] Name Value Range Interpretation Code Description Data Dee rce(s) Supporting Document(s) SARS-CoV-2 (COVID 19) [facility] This lab was ordered by [facility] a nd reported by [facility]. Procedure
[2020-10-06] MEDS ORDERED: NS 500 ML IV ONE ×2 (07:45→09:30)
[2020-10-06 08:05] LABS: CK-MB VALUE MASS 5.8 NG/ML (<3.6); MB/CK RELATIVE INDEX 13.49 (< OR =4); TROPONIN I 0.65 NG/ML (< 0.10)
[2020-10-06] MEDS ORDERED: MULTIVITAMINS/MINERALS THERAP 1 TAB PO SCH (09:00)
--- NOTE | 2020-10-06 09:38 | ECGEPIP ---
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
--- NOTE | 2020-10-06 09:41 | ECGEPIP ---
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
[2020-10-06] MEDS ORDERED: ISOVUE-370 76% 100ML VIAL As Ordered ONE (10:17)
[2020-10-06 10:48] LABS: MB/CK RELATIVE INDEX 14.71 (< OR =4); TROPONIN I 0.66 NG/ML (< 0.10)
--- NOTE | 2020-10-06 10:59 | REP ---
INDICATION: shortness of breath COMPARISON: 09/28/2019 TECHNIQUE: Axial contrast enhanced images from the thoracic inlet to the upper abdomen using pulmonary embolus technique with multiplanar re-formations. 75 ml Isovue 370 intravenous contrast material administered without complication. This CT examination was performed using the following dose reduction techniques: Automated exposure control, adjustment of mA and/or kv according to the patient's size, and use of iterative reconstruction technique. FINDINGS: Satisfactory enhancement of the pulmonary vasculature is achieved and no filling defects are identified to suggest pulmonary embolus. Further evaluation of the mediastinum demonstrates normal thoracic aorta, heart and pericardium. The bilateral lung rodrigez are well aerated and clear without consolidation pleural effusion or pneumothorax. Tracheobronchial tree is patent. No significant nodule or mass lesion is identified. Few scattered small calcified granulomata noted. No adenopathy noted. Surrounding musculoskeletal structures intact IMPRESSION: No evidence for pulmonary embolus. No acute mediastinal or pleural parenchymal process. <Electronically signed by Blake Mack > 10/06/20 [id number]
[2020-10-06] MEDS: LEVALBUTEROL 1.25 MG/0.5 ML CONCENTRATE NEB NEB SCH ×3 (12:00→19:51)
--- OUTSIDE RECORDS SUMMARY | 2020-10-06 12:54 | CCD ---
Author Author [facility] Organization [facility] Address Unknown Phone Unavailable Support Name Relationship Address Phone DISABLED Next Of Kin Unknown Unavailable UE Next Of Kin Unknown Unavailable VIVIANAQUINTIN HALL Next Of Kin [address] [place], [place] [id number] Re-disclosure Warning The records that you are [...] is protected by Article 27-F of the [facility] Public Health law. If you continue you may have access to information: Regarding HIV / AIDS; Provided by facilities licensed or operated by the [facility] Office of Mental Health; or Provided by the [facility] Office for People With Developmental Disabilities. If such information is present, then the following [facility] mandated warning applies: This information has [...] law may result in a fine or nursing home sentence or both. A general authorization for the release of medical or other information is NOT sufficient authorization for further disc losure. Insurance Providers Payer name Policy type / Coverage type Policy ID Covered constitution party ID Covered constitution party's relationship to galloway Policy Galloway Plan Information SELF PAY ONLY [id number] SP [id number] MEDICAID [id number] SP [id number] O UNAVAILABLE UNAVAILA BLE MEDICARE [id number] SP [id number] A MEDICAID M [id number] SELF PAY UNAVAILABLE SP UNAVAILA BLE SELF PAY ONLY UNAVAILABLE SP UNAV AILABLE MEDICAID [id number] SP [id number] SELF PAY P UNAVAILABLE UNAVAILA BLE [id number] Results ID Date Data Source [id number] 09/24/2020 10:36:00 PM EST [facility] Name Value Range Interpretation Code Description Data Dee rce(s) Supporting Document(s) SARS coronavirus 2 RNA [Presence] in Res piratory specimen by JAG with probe detection NEGATIVE [facility] This lab was ordered by [facility] a nd reported by [facility]. ID Date Data Source [id number] 09/24/2020 09:25:00 PM EST [facility] Name Value Range Interpretation Code Description Data Dee rce(s) Supporting Document(s) SARS COVID ANTIGEN NEGATIVE [facility] a [facility] reported by [facility]. ID Date Data Source [id number] 07/25/2020 06:43:00 PM EST [facility] Name Value Range Interpretation Code Description Data Dee rce(s) Supporting Document(s) SARS-CoV-2 (COVID 19) [facility] This lab was ordered by [facility] a nd reported by [facility]. Procedure
[2020-10-06] MEDS ORDERED: LEVALBUTEROL 1.25 MG/0.5 ML CONCENTRATE NEB NEB PRN (13:00)
[2020-10-06] MEDS ORDERED: NICOTINE 21MG/24HR 1 EA TRANSDERMAL TD ONE (13:15)
--- NOTE | 2020-10-06 13:24 | HPEPDOC ---
[facility] Medical History & Physical Date of Admission Oct 06, 2020 Date of Service: Oct 06, 2020 Attending Physician: Shanita Yen MD History and Physical CHIEF COMPLAINT: increasing shortness of breath HISTORY OF PRESENT ILLNESS: Patient is a 55-year-old female with past medical history of alcohol abuse, tobacco use, questionable COPD, history of GI bleed, history of grand mal seizures, hypertension who presented to [facility] emergency room after having increasing shortness of breath worsening over the past 2 weeks. According to the patient her shortness of breath began 2 weeks ago gradual increase of air hunger both at rest and with activity. She states over the past one week her shortness of breath has been persistent all day and night. It is associated with chest pressure over the past 34 days, localized substernally, nonradiating, 4/10 on pressure scale, dull. She also has had a mild cough, nonproductive. She states her chest pressure can sometimes be painful with coughing or deep breathing. She still complains of decreased appetite. She does not have a nebulizer machine at home and has not been using anything for her shortness of breath. She has never been diagnosed with COPD but has multiple visits to our emergency room for COPD exacerbations. She denies fevers, chills, sick contacts, abdominal pain, lightheadedness, dizziness. When EMS arrived at her house she was found to be hypoxic in the 60s, respiratory distress, heart rate [id number]. She was given nebulizer and decadron, placed on nonrebreather and brought to the hospital for further evaluation. The emergency room, vital signs: T 96.5, respiratory rate 28, heart rate 130- 150, blood pressure 110/70, 98% on 35% FiO2 when she was placed on BiPAP. ABG showed pH 7.284, PCO2 minimally elevated. She was given nebulizers here in the hospital. After placement on BiPAP the patient's agitation improved along with her respiratory distress. She was given 2 500 mL boluses as the patient appeared dry. Labs showed abnormal values of H&H 17/51, troponin was elevated at 0.63 then 0.65 and 0.66 on the third. ECG showed sinus tachycardia with nonspecific ST and T-wave abnormalities. Cardiology was curb-sided and they suggested continuing to cycle troponins. Cardiology suggested likely ischemic demand secondary to acute respiratory disease and tachycardia. The patient has no known cardiac disease but has multiple risk factors for it. BNP was mildly elevated at 513. Repeat ABG showed pH 7.395, PaO2 52, PCO2 30.9 the patient was taken off of BiPAP. COVID and resp panel neg. She was ultimately admitted to PCU for acute hypercapnic and hypoxic respiratory failure likely secondary to COPD exacerbation. REVIEW OF SYSTEMS: Neg except for what is mentioned above PAST MEDICAL HISTORY: Hx of alcohol abuse Tobacco use Hx of GI bleed Grand-mal seizures HTN PAST SURGICAL HISTORY: Hysterectomy Tubal ligation Appendectomy FAMILY HISTORY: Father: unknown history, in 80's Mother: healthy. Alive SOCIAL HISTORY: Smoker 1/2-1 PPD, last cigarette 2 weeks ago, for 10 + years. Alcohol history, states last drink was 3-4 years ago. Denies drug use. Lives with boyfriend locally, unemployed. Full Code. ALLERGIES: Please see below. HOME MEDICATIONS: Please see below. PHYSICAL EXAMINATION: VS: T 96.5, respiratory rate 23, heart rate 114, blood pressure 110/70, 98% on 35% FiO2 Bipap CONSTITUTIONAL: No acute distress, resting comfortably sitting up in bed, AAO x 3 EYES: PERRLA, EOM intact HENT, MOUTH: Normocephalic, atraumatic, moist mucous membranes NECK: SUPPLE, no JVD, no lymphadenopathy, no carotid bruit CV: tachypnic, sinus tachycardia, S1S2 normal, no murmurs/rubs/gallops RESPIRATORY: Decreased breath sounds b/l with occasional wheezing b/l, no rales/rhonchi GI: BS positive in 4 quadrants, soft, nontender, nondistended, no rebound or guarding, no organomegaly : Deferred MUSCULOSKELETAL: Normal ROM. No cyanosis, clubbing, swelling, joint deformity, extremity edema INTEGUMENTARY: Intact, no rashes, no lesions, no erythema NEUROLOGIC: Cranial Nerves II-XII are intact, no focal deficits PSYCHIATRIC: Mood and affect are normal LABORATORY DATA: Please see below IMAGING: CTA chest: No evidence for pulmonary embolus. No acute mediastinal or pleural parenchymal process. CXR: No acute findings. ASSESSMENT: 55-year-old female with past medical history of alcohol abuse, tobacco use, questionable COPD, history of GI bleed, history of grand mal seizures, hypertension admitted to PCU for acute hypercapnic and hypoxic respiratory failure likely secondary to COPD exacerbation. PLAN: Acute hypercapnic and hypoxic respiratory failure likely secondary to COPD exacerbation -Smoking history, never been tested for COPD as o/p -Most recent ABG: pH 7.395, pCO2 30.9, pO2 52 -Improved work of breathing since arrival, s/p nebulizers and steroids -D/c Bipap -C/w supplemental O2, methylprednisolone Q8H, levalbuterol ATC and PRN -F/u repeat ABG, monitor for worsening hypercapnia Tachycardia likely 2/2 to dehydration from decreased PO intake, respiratory distress and cannot r/o alcohol withdrawl -Patient denies drinking in past several years but told ER several weeks- unreliable -Admits to not eating or drinking much over the past several -Afebrile, WBC wnl so not suspecting infection at this time -C/w IVFs -Follow up labs, CIWA protocol in place Elevated troponin likely 2/2 to ischemic demand -Elevated HR, BP on arrival -Abnormal ECG, discussed with cardiology, Dr. Mack -F/u echocardiogram -Controlling respiratory disease above is important -Continue to cycle trops, if increase then may possibly need transfer -If trops stay the same or decrease, continue to monitor and will likely need additional cardiac w/u as o/p. Can schedule f/u with Dr. Mack' office at discharge. Polycythemia likely 2/2 to respiratory disease, underlying COPD and possible dehydration -H/H 17.51, chronically elevated after trending labs -IVFs, f/u repeat labs Hx of alcohol abuse -Tachycardia and tremors concerning for alcohol withdrawl despite being told she has not drank in a while -CIWA protocol with ativan, MV, thiamine, folate, IVFs. Hx of GI bleed -No s/s of bleeding -Monitor Hx of grand-mal seizures -Stable -Not on home meds -last seizure several years ago Tobacco use -Tobacco cessation done at bedside -Nicotine patch HTN. -Stable -not on home meds DVT px -Lovenox DISPOSITION: Admitted to PCU for close monitoring. Plan is home when medically improved. Vital Signs Vital Signs Date Time Temp Pulse Resp B/P (MAP) Pulse Ox O2 Delivery O2 Flow Rate FiO2 10/06/20 11:45 110/74 (86) 10/06/20 11:33 111 98 NIPPV (BIPAP/CPAP) 35 10/06/20 06:36 28 10/06/20 05:31 96.5 15.0 Laboratory Data Labs 24H Laboratory Tests 2 10/06/20 05:36: Immature Granulocyte % (Auto) 0.7, Neutrophils (%) (Auto) 66.1H, Lymphocytes (%) (Auto) 20.9L, Monocytes (%) (Auto) 10.9H, Eosinophils (%) (Auto) 0.7, Basophils (%) (Auto) 0.7, Neutrophils # (Auto) 4.7, Lymphocytes # (Auto) 1.5, Monocytes # (Auto) 0.8, Eosinophils # (Auto) 0.1, Basophils # (Auto) 0.1, Nucleated Red Blood Cells % (auto) 0.0, Anion Gap 11, Glomerular Filtration Rate > 60.0, Lactic Acid Level 2.7*H, Calcium Level 9.0, Total Bilirubin 1.2H, Direct Bilirubin 0.4H, Aspartate Amino Transf (AST/SGOT) 315H, Alanine Aminotransferase (ALT/SGPT) 262H, Alkaline Phosphatase 216H, Total Creatine Kinase 43, Creatine Kinase MB 5.2H, Creatine Kinase MB Relative Index 12.09H, Troponin I 0.63H, LC-Mdp-I-Type Natriuretic Peptide 513H, Total Protein 8.0, Albumin 3.5, Albumin/Globulin Ratio 0.8L, Ethyl Alcohol Level < 0.003 10/06/20 05:44: POC pH (Misc Panel) 7.284L, POC Base Excess (Misc Panel) -4.0L, POC Saturated Percent O2 (Misc) 97, POC pO2 (Misc Panel) 104.0, POC pCO2 (Misc Panel) 48.3H, POC HCO3 (Misc Panel) 22.9, POC Total CO2 (Misc Panel) 24.0 10/06/20 06:54: POC pH (Misc Panel) 7.253L, POC Base Excess (Misc Panel) -4.0L, POC Saturated Percent O2 (Misc) 100H, POC pO2 (Misc Panel) 250.0H, POC pCO2 (Misc Panel) 52.1H, POC HCO3 (Misc Panel) 23.0, POC Total CO2 (Misc Panel) 25.0 10/06/20 07:24: Lactic Acid Level 3.9*H, Total Creatine Kinase 43, Creatine Kinase MB 5.8H, Creatine Kinase MB Relative Index 13.49H, Troponin I 0.65H 10/06/20 08:16: POC pH (Misc Panel) 7.339L, POC Base Excess (Misc Panel) -5.0L, POC Saturated Percent O2 (Misc) 96, POC pO2 (Misc Panel) 87.0, POC pCO2 (Misc Panel) 38.5, POC HCO3 (Misc Panel) 20.7L, POC Total CO2 (Misc Panel) 22.0L 10/06/20 10:08: Lactic Acid Level 4.6*H, Total Creatine Kinase 34, Creatine Kinase MB 5.0H, Creatine Kinase MB Relative Index 14.71H, Troponin I 0.66H 10/06/20 12:36: POC pH (Misc Panel) 7.395, POC Base Excess (Misc Panel) -6.0L, POC Saturated Percent O2 (Misc) 87L, POC pO2 (Misc Panel) 52.0L, POC pCO2 (Misc Panel) 30.9L, POC HCO3 (Misc Panel) 18.9L, POC Total CO2 (Misc Panel) 20.0L CBC/BMP Laboratory Tests 10/06/20 05:36 Microbiology Microbiology 10/06/20 Respiratory Virus Panel (PCR) ([facility]NE) - Final, Complete Home Medications No Active Prescriptions or Reported Meds Allergies Coded Allergies: ibuprofen (Verified Allergy, Intermediate, 06/15/20) Penicillins (Verified Adverse Reaction, Mild, 06/15/20) A-FIB/CHADSVASC A-FIB History Current/History of A-Fib/PAF?: No Current PO Anticoag Therapy: No Age/Risk Factor Scoring CHADSVASC: CHADSVASC Response (Comments) Value Age Risk Factor Age < 65 years old 0 Gender Risk Factor Female 1 Hx of CHF No 0 Hx of HTN Yes 1 Hx of Stroke/TIA/or VTE No 0 Hx of Diabetes No 0 Hx of Vascular Disease No 0 Total 2 Treatment Treatment ordered: Other Other anticoagulant ordered: lovenox Shanita Yen MD Oct 06, 2020 13:23
[2020-10-06 13:38] LABS: PROTHROMBIN TIME 13.4 SECONDS (12.5-14.3)
[2020-10-06 13:39] LABS: PARTIAL THROMBOPLASTIN TIME 28.7 SECONDS (24.2-38.5)
[2020-10-06 14:45] VITALS: BP 120/68
[2020-10-06] MEDS: methylPREDNISolone 125MG 2ML VIAL IV SCH ×2 (14:48→21:39)
[2020-10-06] MEDS: THIAMINE 100 MG TAB PO SCH ×2 (14:49→20:45)
[2020-10-06] MEDS: FOLIC ACID 1 MG TAB PO SCH (14:49)
[2020-10-06] MEDS: NS 1,000 ML IV SCH (14:50)
[2020-10-06] MEDS ORDERED: guaiFENesin SYRUP 200 MG/10 ML UDC PO PRN (15:30)
[2020-10-06 15:45] VITALS: BP 118/68
[2020-10-06 18:04] LABS: ABG BASE EXCESS -4.3 (-2.0-2.0); ABG HCO3 17.1 MEQ/L (22.0-26.0); ABG O2 SATURATION 98.5 % (95.0-99.0); ABG PARTIAL PRESSURE CO2 23.8 mmHg (35.0-45.0); ABG PARTIAL PRESSURE O2 101.3 mmHg (75.0-100.0); ABG STANDARD HCO3 20.9 MEQ/L (22.0-26.0); ABG TOTAL CO2 17.8 MEQ/L (22.0-29.0); ABG pH (ARTERIAL) 7.474 UNITS (7.350-7.450)
--- NOTE | 2020-10-06 19:20 | ECGEPIP ---
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
[2020-10-06 19:41] VITALS: BP 125/67
[2020-10-06 20:47] LABS: ALBUMIN 2.8 GM/DL (3.2-5.2); ALT/SGPT 177 U/L (12-78); BILIRUBIN,TOTAL 0.5 MG/DL (0.2-1.0); BLOOD UREA NITROGEN 9 MG/DL (7-18); CALCIUM LEVEL 8.4 MG/DL (8.5-10.1); CARBON DIOXIDE LEVEL 22 MEQ/L (21-32); CHLORIDE LEVEL 106 MEQ/L (98-107); GLOMERULAR FILTRATION RATE > 60.0 (>51); GLUCOSE, FASTING 261 MG/DL (70-100); POTASSIUM SERUM 3.4 MEQ/L (3.5-5.1); SODIUM LEVEL 138 MEQ/L (136-145); TOTAL PROTEIN 6.9 GM/DL (6.4-8.2); TROPONIN I 0.37 NG/ML (< 0.10)
[2020-10-06] MEDS ORDERED: guaiFENesin ER 600 MG TAB PO SCH (21:00)
[2020-10-06 22:12] VITALS: BP 151/77
[2020-10-06] MEDS: LORazepam 2 MG TAB PO PRN (22:52)
[2020-10-06 23:37] LABS: ABG BASE EXCESS -4.1 (-2.0-2.0); ABG HCO3 17.5 MEQ/L (22.0-26.0); ABG O2 SATURATION 98.2 % (95.0-99.0); ABG PARTIAL PRESSURE CO2 25.7 mmHg (35.0-45.0); ABG PARTIAL PRESSURE O2 104.2 mmHg (75.0-100.0); ABG STANDARD HCO3 21.2 MEQ/L (22.0-26.0); ABG TOTAL CO2 18.3 MEQ/L (22.0-29.0); ABG pH (ARTERIAL) 7.452 UNITS (7.350-7.450)
[2020-10-06 23:54] VITALS: BP 143/78
[2020-10-07] VITALS (12 sets, daily range): BP systolic 110–148; BP diastolic 55–85
[2020-10-07] MEDS: NS 1,000 ML IV SCH (01:23)
[2020-10-07] MEDS: KCL 10MEQ/100ML SWI (KRUN) 10 MEQ in IV 1 EA IV SCH ×2 (01:25→02:35)
[2020-10-07] MEDS: methylPREDNISolone 125MG 2ML VIAL IV SCH ×3 (05:16→21:24)
[2020-10-07 05:36] LABS: HEMATOCRIT 41.1 % (36.0-47.0); MEAN CORPUSCULAR HEMOGLOBIN 30.5 pg (27.0-33.0); MEAN CORPUSCULAR HGB CONC 33.1 g/dl (32.0-36.5); MEAN CORPUSCULAR VOLUME 92.2 fl (80.0-96.0); PLATELET COUNT, AUTOMATED 154 10^3/uL (150-450); RED BLOOD COUNT 4.46 10^6/uL (4.00-5.40); WHITE BLOOD COUNT 10.9 10^3/uL (4.0-10.0)
[2020-10-07 05:43] LABS: HEMOGLOBIN 13.6 g/dl (12.0-15.5)
[2020-10-07 05:59] LABS: ALBUMIN 2.7 GM/DL (3.2-5.2); ALT/SGPT 152 U/L (12-78); BILIRUBIN,TOTAL 0.6 MG/DL (0.2-1.0); BLOOD UREA NITROGEN 11 MG/DL (7-18); CALCIUM LEVEL 7.8 MG/DL (8.5-10.1); CARBON DIOXIDE LEVEL 24 MEQ/L (21-32); CHLORIDE LEVEL 109 MEQ/L (98-107); CREATININE FOR GFR 0.53 MG/DL (0.55-1.30); GLOMERULAR FILTRATION RATE > 60.0 (>51); GLUCOSE, FASTING 136 MG/DL (70-100); POTASSIUM SERUM 4.1 MEQ/L (3.5-5.1); SODIUM LEVEL 140 MEQ/L (136-145); TOTAL PROTEIN 6.4 GM/DL (6.4-8.2); TROPONIN I 0.16 NG/ML (< 0.10)
[2020-10-07] MEDS: LEVALBUTEROL 1.25 MG/0.5 ML CONCENTRATE NEB NEB SCH ×4 (07:14→20:22)
[2020-10-07] MEDS: THIAMINE 100 MG TAB PO SCH ×2 (08:50→21:24)
[2020-10-07] MEDS: FOLIC ACID 1 MG TAB PO SCH (08:50)
[2020-10-07] MEDS: MULTIVITAMIN/MINERALS LIQUID 15ML ORAL SYRINGE PO SCH (08:50)
[2020-10-07] MEDS: ENOXAPARIN 40MG/0.4ML SYRINGE (J1650 PER 10MG) SC SCH (08:51)
[2020-10-07] MEDS: LORazepam 2 MG TAB PO PRN ×2 (10:50→15:08)
--- NOTE | 2020-10-07 12:26 | IPNPDOC ---
Date Seen The patient was seen on 10/07/20. Progress Note SUBJECTIVE: Decreased air movement b/l remains, coughing. On steroids and will keep on current dose, 2 L NC. Denies chest pain, fevers, chills but admits to incr SOB especially with activity. OBJECTIVE: PHYSICAL EXAMINATION: VS:Please see below CONSTITUTIONAL: No acute distress, resting comfortably sitting up in bed, AAO x 3 EYES: PERRLA, EOM intact HENT, MOUTH: Normocephalic, atraumatic, moist mucous membranes, NC in place NECK: SUPPLE, no JVD, no lymphadenopathy, no carotid bruit CV: tachypnic, sinus tachycardia, S1S2 normal, no murmurs/rubs/gallops RESPIRATORY: Decreased breath sounds b/l with occasional wheezing b/l, no rales/rhonchi GI: BS positive in 4 quadrants, soft, nontender, nondistended, no rebound or guarding, no organomegaly : Deferred MUSCULOSKELETAL: Normal ROM. No cyanosis, clubbing, swelling, joint deformity, extremity edema INTEGUMENTARY: Intact, no rashes, no lesions, no erythema NEUROLOGIC: slightly tremulous, Cranial Nerves II-XII are intact, no focal deficits PSYCHIATRIC: Mood and affect are normal LABORATORY DATA: Please see below IMAGING: Echocardiogram 10/06/20: pending CTA chest: No evidence for pulmonary embolus. No acute mediastinal or pleural parenchymal process. CXR: No acute findings. ASSESSMENT: 55-year-old female with past medical history of alcohol abuse, tobacco use, questionable COPD, history of GI bleed, history of grand mal seizures, hypertension admitted to PCU for acute hypercapnic and hypoxic respiratory failure likely secondary to COPD exacerbation. PLAN: Acute hypercapnic and hypoxic respiratory failure likely secondary to COPD exacerbation- improving -Currently on 2 L NC, saturating well. Improved SOB;however, still not moving air well on exam -Smoking history, never been tested for COPD as o/p -C/w supplemental O2, methylprednisolone Q8H, levalbuterol ATC and PRN Tachycardia likely 2/2 to dehydration from decreased PO intake, respiratory distress and cannot r/o alcohol withdrawl -Patient denies drinking in past several years but told ER several weeks- unreliable -Admits to not eating or drinking much over the past several -Afebrile, WBC wnl so not suspecting infection at this time -D/c IVFs this AM as labs seem improved, encourage PO intake Q2hrs during the day -Follow up labs, CIWA protocol in place Elevated troponin likely 2/2 to ischemic demand-improving -Elevated HR, BP on arrival -Abnormal ECG, discussed with cardiology, Dr. Mack -Echocardiogram pending -Trops trending down near normal -Can schedule f/u with Dr. Mack' office at discharge as she will likely need more testing o/p Polycythemia likely 2/2 to dehydration- resolved -H/H 17.51 on admission, improved today to wnl -Monitor labs daily Hx of alcohol abuse -Tachycardia and tremors concerning for alcohol withdrawl despite being told she has not drank in a while -CIWA protocol with ativan, MV, thiamine, folate, IVFs. Hx of GI bleed -No s/s of bleeding -Monitor Hx of grand-mal seizures -Stable -Not on home meds -last seizure several years ago Tobacco use -Tobacco cessation done at bedside -Nicotine patch HTN. -Stable -not on home meds DVT px -Lovenox DISPOSITION: Downgraded to med/surg with continued treatment below. PT/OT as patient is shaky. Plan is home when medically improved. VS, I&O, 24H, Fishbone Vital Signs/I&O Vital Signs Date Time Temp Pulse Resp B/P (MAP) Pulse Ox O2 Delivery O2 Flow Rate FiO2 10/07/20 10:50 98 144/79 10/07/20 08:00 2.0 10/07/20 07:42 97.8 20 96 High Flow Cannula 10/06/20 12:45 35 I&O- Last 24 Hours up to 6 AM 10/07/20 06:00 Intake Total 1300 ml Output Total 175 ml Balance 1125 ml Laboratory Data 24H LABS Laboratory Tests 2 10/06/20 12:36: POC pH (Misc Panel) 7.395, POC Base Excess (Misc Panel) -6.0L, POC Saturated Percent O2 (Misc) 87L, POC pO2 (Misc Panel) 52.0L, POC pCO2 (Misc Panel) 30.9L, POC HCO3 (Misc Panel) 18.9L, POC Total CO2 (Misc Panel) 20.0L 10/06/20 13:08: Prothrombin Time 13.4, Prothromb Time International Ratio 1.00, Activated Partial Thromboplast Time 28.7, Lactic Acid Followup at 4 Hours 7.4*H, Troponin I 0.64H 10/06/20 17:51: Blood Gas Bicarbonate Standard 20.9L, Arterial Blood pH 7.474H, Arterial Blood Partial Pressure CO2 23.8L, Arterial Blood Partial Pressure O2 101.3H, Arterial Blood Total CO2 17.8L, Arterial Blood HCO3 17.1L, Arterial Blood Base Excess - 4.3L, Arterial Blood Oxygen Saturation 98.5 10/06/20 19:50: Troponin I 0.37#H, Anion Gap 10, Glomerular Filtration Rate > 60.0, Lactic Acid Level 4.5*H, Calcium Level 8.4L, Total Bilirubin 0.5#, Aspartate Amino Transf (AST/SGOT) 153H, Alanine Aminotransferase (ALT/SGPT) 177H, Alkaline Phosphatase 146H, Total Protein 6.9, Albumin 2.8L, Albumin/Globulin Ratio 0.7L 10/06/20 22:26: Blood Gas Bicarbonate Standard 21.2L, Arterial Blood pH 7.452H, Arterial Blood Partial Pressure CO2 25.7L, Arterial Blood Partial Pressure O2 104.2H, Arterial Blood Total CO2 18.3L, Arterial Blood HCO3 17.5L, Arterial Blood Base Excess - 4.1L, Arterial Blood Oxygen Saturation 98.2 10/07/20 00:16: Lactic Acid Followup at 4 Hours 2.0 10/07/20 04:58: Nucleated Red Blood Cells % (auto) 0.0, Anion Gap 7L, Glomerular Filtration Rate > 60.0, Calcium Level 7.8L, Total Bilirubin 0.6, Aspartate Amino Transf (AST/SGOT) 117H, Alanine Aminotransferase (ALT/SGPT) 152H, Alkaline Phosphatase 134H, Troponin I 0.16#H, Total Protein 6.4, Albumin 2.7L, Albumin/Globulin Ratio 0.7L CBC/BMP Laboratory Tests 10/06/20 19:50 10/07/20 04:58 Microbiology Microbiology 10/06/20 Respiratory Virus Panel (PCR) (EVELYNE) - Final, Complete Current Medications Current Medications Medications (Trade) Dose Ordered Sig/Roe Route PRN Reason Start Time Stop Time Status Last Admin Dose Admin Albuterol/ Ipratropium (Duoneb (Ipr 0.5mg/Alb 2.5mg)) 3 ml Q20M NEB 10/06/20 05:45 10/06/20 06:26 DC 10/06/20 05:55 Enoxaparin Sodium (Lovenox) 40 mg DAILY SC 10/07/20 09:00 10/07/20 08:51 Folic Acid (Folic Acid) 1 mg DAILY PO 10/06/20 09:00 10/07/20 08:50 Guaifenesin (Mucinex Tab Er) 1,200 mg BID PO 10/06/20 21:00 10/06/20 15:18 DC Guaifenesin (Robitussin) 15 ml Q8HP PRN PO COUGH 10/06/20 15:30 10/07/20 10:50 Home Med (Med Rec Complete!) ASDIRECTED XX 10/06/20 13:00 10/06/20 12:57 DC Levalbuterol HCl (Xopenex Neb) 1.25 mg Q2HP PRN NEB SOB/WHEEZING 10/06/20 13:00 Levalbuterol HCl (Xopenex Neb) 1.25 mg RQID NEB 10/06/20 12:00 10/07/20 11:12 Lorazepam (Ativan) 2 mg ASDIRECTED PRN PO SEE PROTOCOL 10/06/20 13:00 10/07/20 10:50 Methylprednisolone (SOLUmedrol) 60 mg Q8H IV 10/06/20 14:00 10/07/20 05:16 Multivitamins (Theragram-M) 1 tab DAILY PO 10/06/20 09:00 10/06/20 15:18 DC 10/06/20 14:49 Multivitamins/ Minerals Therapeutic (Certavite Liquid) 15 ml DAILY PO 10/07/20 09:00 10/07/20 08:50 Potassium Chloride 10 meq/ IV Miscellaneous Supplies 100 ml @ 100 mls/hr 0130,0230 IV 10/07/20 01:30 10/07/20 06:30 DC 10/07/20 02:35 Sodium Chloride 1,000 ml @ 100 mls/hr Q10H IV 10/06/20 13:00 10/07/20 07:31 DC 10/07/20 01:23 Thiamine HCl (Thiamine HCl) 100 mg BID PO 10/06/20 13:15 10/08/20 21:01 2/12/21 08:50 Allergies Coded Allergies: ibuprofen (Verified Allergy, Intermediate, 06/15/20) Penicillins (Verified Adverse Reaction, Mild, 06/15/20) Shanita Yen MD Oct 07, 2020 12:26
[2020-10-07 14:37] LABS: ABG HCO3 21.8 MEQ/L (22.0-26.0); ABG O2 SATURATION 99.2 % (95.0-99.0); ABG PARTIAL PRESSURE CO2 31.2 mmHg (35.0-45.0); ABG PARTIAL PRESSURE O2 150.7 mmHg (75.0-100.0); ABG STANDARD HCO3 23.7 MEQ/L (22.0-26.0); ABG TOTAL CO2 22.8 MEQ/L (22.0-29.0); ABG pH (ARTERIAL) 7.463 UNITS (7.350-7.450)
--- NOTE | 2020-10-07 14:43 | ECHO ---
DATE OF PROCEDURE: 10/06/2020 Age: 55 Gender: Female Height: 157 cm Weight: 55 kg Body surface area: 1.54 m2 PATIENT LOCATION: Inpatient PCU, room 3211. REFERRING PHYSICIAN: Shanita Yen M.D. INDICATION: Shortness of breath. MEASUREMENTS: 2D Measurements: RV 3.1 cm LV 3.4 cm Septum 1.1 cm Posterior wall 1.1 cm Aortic Root 3.0 cm LA 3.1 cm LVEF 75% Doppler Measurements: AV 1.22 m/s LVOT 1.0 m/s LVOT diameter 1.9 cm MV-E 74, A 95, E/A ratio 0.8 Early mitral deceleration time 140 msec E prime medial 8.2, A prime medial 11, E prime lateral 7 Average E/E prime ratio 9.7/PCWP - 14 mmHg PV 0.9 m/s Pulmonary artery acceleration time 87 msec PASP 42 mmHg IVC 1.6 cm COMMENTS: Sinus tachycardia without intraventricular conduction disturbance. Technically difficult study in light of the patients pulmonary disease, but some diagnostically useful information was still obtained. Normal left ventricular size, wall thickness, and hyperkinetic wall motion no localized wall motion abnormality despite indeterminate troponin I levels. Normal left atrial size with grade 1 LV diastolic dysfunction, but currently normal estimated mean left atrial pressure. Normal right heart chamber sizes and hyperkinetic wall motion with Doppler sign to suggest moderate pulmonary hypertension. Normal IVC size and collapse against an elevated central venous pressure. Normal aortic dimensions. Mild aortic valvular sclerosis without stenosis and only trace insufficiency. Normal appearing mitral valve apparatus with trace physiological insufficiency. Normal appearing tricuspid valve with very mild to mild insufficiency. Could not completely rule out an intracardiac mass because of the technically difficulties with imaging with this patient. No pericardial effusion. MTDD
[2020-10-07] MEDS ORDERED: NS 1,000 ML IV SCH (15:30)
[2020-10-07] MEDS: guaiFENesin/CODEINE SYRUP 5 ML UDC PO SCH ×2 (16:01→21:24)
[2020-10-07] MEDS: NS 0.45% 1,000 ML IV SCH (16:01)
[2020-10-08] VITALS (8 sets, daily range): BP systolic 130–160; BP diastolic 66–97
[2020-10-08] MEDS: NS 0.45% 1,000 ML IV SCH (02:05)
[2020-10-08] MEDS: methylPREDNISolone 125MG 2ML VIAL IV SCH ×3 (05:38→20:10)
[2020-10-08 06:15] LABS: HEMATOCRIT 38.7 % (36.0-47.0); MEAN CORPUSCULAR HEMOGLOBIN 31.2 pg (27.0-33.0); MEAN CORPUSCULAR HGB CONC 33.6 g/dl (32.0-36.5); MEAN CORPUSCULAR VOLUME 92.8 fl (80.0-96.0); PLATELET COUNT, AUTOMATED 154 10^3/uL (150-450); RED BLOOD COUNT 4.17 10^6/uL (4.00-5.40); WHITE BLOOD COUNT 9.6 10^3/uL (4.0-10.0)
[2020-10-08 06:37] LABS: ALBUMIN 2.5 GM/DL (3.2-5.2); ALT/SGPT 156 U/L (12-78); BILIRUBIN,TOTAL 0.4 MG/DL (0.2-1.0); BLOOD UREA NITROGEN 12 MG/DL (7-18); CALCIUM LEVEL 7.8 MG/DL (8.5-10.1); CARBON DIOXIDE LEVEL 23 MEQ/L (21-32); CHLORIDE LEVEL 111 MEQ/L (98-107); CREATININE FOR GFR 0.45 MG/DL (0.55-1.30); GLOMERULAR FILTRATION RATE > 60.0 (>51); GLUCOSE, FASTING 134 MG/DL (70-100); POTASSIUM SERUM 3.5 MEQ/L (3.5-5.1); SODIUM LEVEL 142 MEQ/L (136-145)
[2020-10-08] MEDS: LEVALBUTEROL 1.25 MG/0.5 ML CONCENTRATE NEB NEB SCH ×6 (07:17→20:00)
--- NOTE | 2020-10-08 07:34 | REPVR ---
PROCEDURE INFORMATION: Exam: US Abdomen Complete Exam date and time: 10/08/2020 6:43 AM Age: 55 years old Clinical indication: Other: Transaminitis; Additional info: Transaminitis, R/O cirrhosis, alcohol abuse HX TECHNIQUE: Imaging protocol: Real-time ultrasound of the abdomen with image documentation. COMPARISON: LIVER US 11/16/2017 8:00 AM FINDINGS: Liver: The liver is diffusely echogenic likely fatty infiltration with small area of sparing in the gallbladder fossa. Gallbladder: There is small amount of layering echogenic nonshadowing material in the gallbladder likely sludge. There is no gallbladder wall thickening or pericholecystic fluid. No sonographic Cook's sign was elicited. Common bile duct: The CBD is normal in caliber measuring 5 mm in diameter. Pancreas: The pancreatic head is unremarkable. The body and the tail of the pancreas are obscured by bowel gas. Right kidney: The right kidney measures 13.2 x 3.7 x 6.5 cm. There is no right renal mass, stone, cyst or hydronephrosis. Duplicated collecting system is noted on the right. Left kidney: The left kidney measures 10.2 x 5.0 x 4.7 cm. There is no left renal mass, stone, cyst or hydronephrosis. The located collecting system is noted on the left. Spleen: The spleen is normal in size measuring 8.6 x 8.3 x 4.0 cm. No focal splenic lesions seen. Aorta: The abdominal aorta is normal in caliber ranging from 1.7-2.0 cm. Inferior vena cava: Normal. IMPRESSION: 1. Questionable small amount of gallbladder sludge but no gallstones or sonographic evidence of cholecystitis. 2. No biliary ductal dilatation. 3. Severe fatty infiltration of the liver. Electronically signed by: Renny Montenegro On 10/08/2020 07:34:41 AM
[2020-10-08] MEDS: THIAMINE 100 MG TAB PO SCH ×2 (10:21→20:10)
[2020-10-08] MEDS: guaiFENesin/CODEINE SYRUP 5 ML UDC PO SCH ×4 (10:21→20:09)
[2020-10-08] MEDS: FOLIC ACID 1 MG TAB PO SCH (10:21)
[2020-10-08] MEDS: MULTIVITAMIN/MINERALS LIQUID 15ML ORAL SYRINGE PO SCH (10:21)
[2020-10-08] MEDS: ENOXAPARIN 40MG/0.4ML SYRINGE (J1650 PER 10MG) SC SCH (10:22)
--- NOTE | 2020-10-08 13:47 | IPNPDOC ---
Date Seen The patient was seen on 10/08/20. Progress Note SUBJECTIVE: More air movement today on exam, decreased steroids, on RA. AAOx3. Denies chest pain, incr SOB, fevers, chills. OBJECTIVE: PHYSICAL EXAMINATION: VS:Please see below CONSTITUTIONAL: No acute distress, resting comfortably sitting up in bed, AAO x 3 EYES: PERRLA, EOM intact HENT, MOUTH: Normocephalic, atraumatic, moist mucous membranes NECK: SUPPLE, no JVD, no lymphadenopathy, no carotid bruit CV: tachypnic, sinus tachycardia, S1S2 normal, no murmurs/rubs/gallops RESPIRATORY: Decreased breath sounds b/l with occasional wheezing b/l, no rales/rhonchi GI: BS positive in 4 quadrants, soft, nontender, nondistended, no rebound or guarding, no organomegaly : Deferred MUSCULOSKELETAL: Normal ROM. No cyanosis, clubbing, swelling, joint deformity, extremity edema INTEGUMENTARY: Intact, no rashes, no lesions, no erythema NEUROLOGIC: Slightly tremulous, Cranial Nerves II-XII are intact, no focal deficits PSYCHIATRIC: Mood and affect are normal LABORATORY DATA: Please see below IMAGING: US abd: Questionable small amount of gallbladder sludge but no gallstones or sonographic evidence of cholecystitis. No biliary ductal dilatation. Severe fatty infiltration of the liver. Echocardiogram 10/06/20: EF 75% Sinus tachycardia without intraventricular conduction disturbance. Technically difficult study in light of the patients pulmonary disease, but some diagnostically useful information was still obtained. Normal left ventricular size, wall thickness, and hyperkinetic wall motion no localized wall motion abnormality despite indeterminate troponin I levels. Normal left atrial size with grade 1 LV diastolic dysfunction, but currently normal estimated mean left atrial pressure. Normal right heart chamber sizes and hyperkinetic wall motion with Doppler sign to suggest moderate pulmonary hypertension. Normal IVC size and collapse against an elevated central venous pressure. Normal aortic dimensions. Mild aortic valvular sclerosis without stenosis and only trace insufficiency. Normal appearing mitral valve apparatus with trace physiological insufficiency. Normal appearing tricuspid valve with very mild to mild insufficiency. Could not completely rule out an intracardiac mass because of the technically difficulties with imaging with this patient. No pericardial effusion. CTA chest: No evidence for pulmonary embolus. No acute mediastinal or pleural parenchymal process. CXR: No acute findings. ASSESSMENT: 55-year-old female with past medical history of alcohol abuse, tobacco use, questionable COPD, history of GI bleed, history of grand mal seizures, hypertension admitted to PCU for acute hypercapnic and hypoxic respiratory failure likely secondary to COPD exacerbation. PLAN: Acute hypercapnic and hypoxic respiratory failure likely secondary to COPD exacerbation- improving -Currently on RA, saturating well -Smoking history, never been tested for COPD as o/p -C/w supplemental O2, methylprednisolone decreased to Q12H, levalbuterol ATC and PRN Tachycardia likely 2/2 to dehydration from decreased PO intake, respiratory dis tress and cannot r/o alcohol withdrawl -Received several doses of ativan 10/07/20, HR improved today -Patient denies drinking in past several years but told ER several weeks- unreliable -Admits to not eating or drinking much over the past several weeks -Afebrile, WBC wnl so not suspecting infection at this time -D/c IVFs this AM as labs/VS seem improved, encourage PO intake Q2hrs during the day -Follow up labs, CIWA protocol in place Elevated troponin likely 2/2 to ischemic demand-improving -VS stable -Abnormal ECG, discussed with cardiology, Dr. Mack -Echocardiogram above -Trops trending down near normal, f/u repeat this AM -Can schedule f/u with Dr. Mack' office at discharge as she will likely need more testing o/p Alcohol withdrawl -Required several doses ativan 10/07/20 -less tremulous today, more awake and alert, oriented x 3. HR much improved -Alcohol cessation discussed with patient his hospital stay -CIWA protocol with ativan, MV, thiamine, folate, IVFs. Chronic transaminitis likely 2/2 to fatty infiltration of liver, hx of alcohol abuse -US above -AST/ALT seem to be improved from 06/2020 when labs trended -F/u CMP daily, lipid panel Unsteadiness, physical deconditioning -PT: " Pt impulsive and intermittently confused with delayed processing. Pt n oted to have tremor like activity and nursing reports possible de-tox. Pt reports living with significant other who works. Based on pt's current dec insight into deficits and impulsivity, current recommendations are for home with 24/7 care and PT services. -Fall risk -C/w PT/OT Hx of GI bleed -No s/s of bleeding -Monitor Hx of grand-mal seizures -Stable -Not on home meds -last seizure several years ago Tobacco use -Tobacco cessation done at bedside -Nicotine patch HTN. -Stable -not on home meds DVT px -Lovenox Resolved issues: Polycythemia likely / to hemoconcentration from dehydration- resolved DISPOSITION: PT/OT to resume after weekend. Plan is home when medically improved. VS, I&O, 24H, Fishbone Vital Signs/I&O Vital Signs Date Time Temp Pulse Resp B/P (MAP) Pulse Ox O2 Delivery O2 Flow Rate FiO2 10/08/20 10:00 97.7 93 18 160/95 (116) 85 Room Air 10/08/20 00:00 0.0 10/06/20 12:45 35 I&O- Last 24 Hours up to 6 AM 10/08/20 06:00 Intake Total 2930 ml Output Total 600 ml Balance 2330 ml Laboratory Data 24H LABS Laboratory Tests 2 10/07/20 14:17: Blood Gas Bicarbonate Standard 23.7, Arterial Blood pH 7.463H, Arterial Blood Partial Pressure CO2 31.2L, Arterial Blood Partial Pressure O2 150.7H, Arterial Blood Total CO2 22.8, Arterial Blood HCO3 21.8L, Arterial Blood Base Excess -1 .0, Arterial Blood Oxygen Saturation 99.2H 10/07/20 14:28: Ammonia < 10 10/08/20 05:30: Nucleated Red Blood Cells % (auto) 0.0, Anion Gap 8, Glomerular Filtration Rate > 60.0, Calcium Level 7.8L, Total Bilirubin 0.4, Aspartate Amino Transf (AST/SGOT) 132H, Alanine Aminotransferase (ALT/SGPT) 156H, Alkaline Phosphatase 129H, Total Protein 6.0L, Albumin 2.5L, Albumin/Globulin Ratio 0.7L CBC/BMP Laboratory Tests 10/08/20 05:30 Microbiology Microbiology 10/06/20 Respiratory Virus Panel (PCR) ([facility]) - Final, Complete Current Medications Current Medications Medications (Trade) Dose Ordered Sig/Roe Route PRN Reason Start Time Stop Time Status Last Admin Dose Admin Albuterol/ Ipratropium (Duoneb (Ipr 0.5mg/Alb 2.5mg)) 3 ml Q20M NEB 10/06/20 05:45 10/06/20 06:26 DC 10/06/20 05:55 Codeine Phosphate/ Guaifenesin (Robitussin Ac) 5 ml QID PO 10/07/20 17:00 10/08/20 13:19 Enoxaparin Sodium (Lovenox) 40 mg DAILY SC 10/07/20 09:00 10/08/20 10:22 Folic Acid (Folic Acid) 1 mg DAILY PO 10/06/20 09:00 10/08/20 10:21 Guaifenesin (Mucinex Tab Er) 1,200 mg BID PO 10/06/20 21:00 10/06/20 15:18 DC Guaifenesin (Robitussin) 15 ml Q8HP PRN PO COUGH 10/06/20 15:30 10/07/20 15:23 DC 10/07/20 10:50 Home Med (Med Rec Complete!) ASDIRECTED XX 10/06/20 13:00 10/06/20 12:57 DC Levalbuterol HCl (Xopenex Neb) 1.25 mg Q2HP PRN NEB SOB/WHEEZING 10/06/20 13:00 Levalbuterol HCl (Xopenex Neb) 1.25 mg RQID NEB 10/06/20 12:00 10/08/20 11:14 Lorazepam (Ativan) 2 mg ASDIRECTED PRN PO SEE PROTOCOL 10/06/20 13:00 10/07/20 15:08 Methylprednisolone (SOLUmedrol) 60 mg Q8H IV 10/06/20 14:00 10/08/20 13:19 Multivitamins (Theragram-M) 1 tab DAILY PO 10/06/20 09:00 10/06/20 15:18 DC 10/06/20 14:49 Multivitamins/ Minerals Therapeutic (Certavite Liquid) 15 ml DAILY PO 10/07/20 09:00 10/08/20 10:21 Potassium Chloride 10 meq/ IV Miscellaneous Supplies 100 ml @ 100 mls/hr 0130,0230 IV 10/07/20 01:30 10/07/20 06:30 DC 10/07/20 02:35 Sodium Chloride 1,000 ml @ 100 mls/hr Q10H IV 10/06/20 13:00 10/07/20 07:31 DC 10/07/20 01:23 Sodium Chloride 1,000 ml @ 100 mls/hr Q10H IV 10/07/20 15:30 10/07/20 15:24 DC Sodium Chloride 1,000 ml @ 100 mls/hr Q10H IV 10/07/20 15:30 10/08/20 08:20 DC 10/08/20 02:05 Thiamine HCl (Thiamine HCl) 100 mg BID PO 10/06/20 13:15 10/08/20 21:01 10/08/20 10:21 Allergies Coded Allergies: ibuprofen (Verified Allergy, Intermediate, 06/15/20) Penicillins (Verified Adverse Reaction, Mild, 06/15/20) Shanita Yen MD Oct 08, 2020 13:47
[2020-10-08 14:46] LABS: CHOLESTEROL LEVEL 202 MG/DL (<200); CHOLESTEROL RISK RATIO 4.297 (<5); HDL CHOLESTEROL 47 MG/DL (>40); LDL CHOLESTEROL 132 MG/DL (<100); NON-HDL-C 155 MG/DL; TRIGLYCERIDES LEVEL 115 MG/DL (<150)
[2020-10-09 06:00] VITALS: BP 153/79
[2020-10-09 06:42] LABS: HEMATOCRIT 39.3 % (36.0-47.0); HEMOGLOBIN 13.3 g/dl (12.0-15.5); MEAN CORPUSCULAR HEMOGLOBIN 31.3 pg (27.0-33.0); MEAN CORPUSCULAR HGB CONC 33.8 g/dl (32.0-36.5); MEAN CORPUSCULAR VOLUME 92.5 fl (80.0-96.0); PLATELET COUNT, AUTOMATED 157 10^3/uL (150-450); RED BLOOD COUNT 4.25 10^6/uL (4.00-5.40); WHITE BLOOD COUNT 6.4 10^3/uL (4.0-10.0)
[2020-10-09 06:58] LABS: ALBUMIN 2.5 GM/DL (3.2-5.2); ALT/SGPT 229 U/L (12-78); BILIRUBIN,TOTAL 0.6 MG/DL (0.2-1.0); BLOOD UREA NITROGEN 13 MG/DL (7-18); CALCIUM LEVEL 8.1 MG/DL (8.5-10.1); CARBON DIOXIDE LEVEL 24 MEQ/L (21-32); CHLORIDE LEVEL 110 MEQ/L (98-107); CREATININE FOR GFR 0.52 MG/DL (0.55-1.30); GLOMERULAR FILTRATION RATE > 60.0 (>51); GLUCOSE, FASTING 139 MG/DL (70-100); POTASSIUM SERUM 3.4 MEQ/L (3.5-5.1); SODIUM LEVEL 142 MEQ/L (136-145)
[2020-10-09] MEDS: LEVALBUTEROL 1.25 MG/0.5 ML CONCENTRATE NEB NEB SCH ×4 (07:51→19:13)
[2020-10-09] MEDS ORDERED: POTASSIUM CHLORIDE 10 MEQ SR TABLET PO ONE (09:00)
[2020-10-09] MEDS: MULTIVITAMIN/MINERALS LIQUID 15ML ORAL SYRINGE PO SCH (09:16)
[2020-10-09] MEDS: guaiFENesin/CODEINE SYRUP 5 ML UDC PO SCH ×4 (09:17→20:34)
[2020-10-09] MEDS: FOLIC ACID 1 MG TAB PO SCH (09:17)
[2020-10-09] MEDS: ENOXAPARIN 40MG/0.4ML SYRINGE (J1650 PER 10MG) SC SCH (09:18)
[2020-10-09] MEDS: methylPREDNISolone 125MG 2ML VIAL IV SCH ×2 (09:18→20:34)
--- NOTE | 2020-10-09 13:00 | IPNPDOC ---
Date Seen The patient was seen on 10/09/20. Progress Note SUBJECTIVE: Improving slowly, on RA. AAOx3. To resume PT after weekend, still feels weak. Denies chest pain, incr SOB, fevers, chills. OBJECTIVE: PHYSICAL EXAMINATION: VS:Please see below CONSTITUTIONAL: No acute distress, resting comfortably sitting up in bed, AAO x 3 EYES: PERRLA, EOM intact HENT, MOUTH: Normocephalic, atraumatic, moist mucous membranes NECK: SUPPLE, no JVD, no lymphadenopathy, no carotid bruit CV: NSR, S1S2 normal, no murmurs/rubs/gallops RESPIRATORY: Decreased breath sounds b/l with occasional wheezing b/l, no rales/rhonchi GI: BS positive in 4 quadrants, soft, nontender, nondistended, no rebound or guarding, no organomegaly : Deferred MUSCULOSKELETAL: Normal ROM. No cyanosis, clubbing, swelling, joint deformity, extremity edema INTEGUMENTARY: Intact, no rashes, no lesions, no erythema NEUROLOGIC: Cranial Nerves II-XII are intact, no focal deficits PSYCHIATRIC: Mood and affect are normal LABORATORY DATA: Please see below IMAGING: US abd: Questionable small amount of gallbladder sludge but no gallstones or sonographic evidence of cholecystitis. No biliary ductal dilatation. Severe fatty infiltration of the liver. Echocardiogram 10/06/20: EF 75% Sinus tachycardia without intraventricular conduction disturbance. Technically difficult study in light of the patients pulmonary disease, but some diagnostically useful information was still obtained. Normal left ventricular size, wall thickness, and hyperkinetic wall motion no localized wall motion abnormality despite indeterminate troponin I levels. Normal left atrial size with grade 1 LV diastolic dysfunction, but currently normal estimated mean left atrial pressure. Normal right heart chamber sizes and hyperkinetic wall motion with Doppler sign to suggest moderate pulmonary hypertension. Normal IVC size and collapse against an elevated central venous pressure. Normal aortic dimensions. Mild aortic valvular sclerosis without stenosis and only trace insufficiency. Normal appearing mitral valve apparatus with trace physiological insufficiency. Normal appearing tricuspid valve with very mild to mild insufficiency. Could not completely rule out an intracardiac mass because of the technically difficulties with imaging with this patient. No pericardial effusion. CTA chest: No evidence for pulmonary embolus. No acute mediastinal or pleural parenchymal process. CXR: No acute findings. ASSESSMENT: 55-year-old female with past medical history of alcohol abuse, t obacco use, questionable COPD, history of GI bleed, history of grand mal seizures, hypertension admitted to PCU for acute hypercapnic and hypoxic respiratory failure likely secondary to COPD exacerbation. PLAN: Acute hypercapnic and hypoxic respiratory failure likely secondary to COPD exacerbation- improving -Currently on RA, saturating well -Smoking history, never been tested for COPD as o/p -C/w supplemental O2, keeping methylprednisolone Q12H and hopefully can decrease to PO in the AM , levalbuterol ATC and PRN Tachycardia likely 2/2 to dehydration from decreased PO intake, respiratory distress and cannot r/o alcohol withdrawl-intermittent -HR improved today, very weak -Patient denies drinking in past several years but told ER several weeks- unreliable -Admits to not eating or drinking much over the past several weeks -Afebrile, WBC wnl so not suspecting infection at this time -Encourage PO intake Q2hrs during the day -Follow up daily labs, CIWA protocol in place Alcohol withdrawl -less tremulous today, more awake and alert, oriented x 3. HR much improved -Alcohol cessation discussed with patient his hospital stay -CIWA protocol with ativan, MV, thiamine, folate, IVFs. Chronic transaminitis likely 2/2 to fatty infiltration of liver, hx of alcohol abuse -US above -AST/ALT increased some today -Sightly elevated cholesterol and LDL -Hepatitis panel pending -CMP daily Unsteadiness, physical deconditioning -PT: " Pt impulsive and intermittently confused with delayed processing. Pt noted to have tremor like activity and nursing reports possible de-tox. Pt reports living with significant other who works. Based on pt's current dec insight into deficits and impulsivity, current recommendations are for home with 24/7 care and PT services. -Fall risk -C/w PT/OT after weekend Hx of GI bleed -No s/s of bleeding -Monitor Hx of grand-mal seizures -Stable -Not on home meds -last seizure several years ago Tobacco use -Tobacco cessation done at bedside -Nicotine patch HTN. -Slightly elevated today -Starting ACEi low dose today DVT px -Lovenox Resolved issues: Polycythemia likely 2/2 to hemoconcentration from dehydration Elevated troponin likely 2/2 to ischemic demand DISPOSITION: PT/OT to resume after weekend. Plan is home when medically improved. VS, I&O, 24H, [place] Vital Signs/I&O Vital Signs Date Time Temp Pulse Resp B/P (MAP) Pulse Ox O2 Delivery O2 Flow Rate FiO2 10/09/20 06:00 97.6 72 17 153/79 (103) 96 Room Air 10/08/20 00:00 0.0 10/06/20 12:45 35 I&O- Last 24 Hours up to 6 AM 10/09/20 06:00 Intake Total 2370 ml Balance 2370 ml Laboratory Data 24H LABS Laboratory Tests 2 10/08/20 14:04: Troponin I 0.03#, Triglycerides Level 115, Total Cholesterol 202H, LDL Cholesterol 132H, Non-HDL Cholesterol (LDL + VLDL) 155, Total HDL Cholesterol 4 7, Cholesterol/HDL Ratio 4.297 10/09/20 06:00: Nucleated Red Blood Cells % (auto) 0.0, Anion Gap 8, Glomerular Filtration Rate > 60.0, Calcium Level 8.1L, Total Bilirubin 0.6, Aspartate Amino Transf (AST/SGOT) 218H, Alanine Aminotransferase (ALT/SGPT) 229H, Alkaline Phosphatase 131H, Total Protein 6.0L, Albumin 2.5L, Albumin/Globulin Ratio 0.7L CBC/BMP Laboratory Tests 10/09/20 06:00 Microbiology Microbiology 10/06/20 Respiratory Virus Panel (PCR) ([facility]) - Final, Complete Shanita Yen MD Oct 09, 2020 13:00
[2020-10-09] MEDS: lisinopriL 5 MG TAB PO SCH (13:16)
[2020-10-09 14:00] VITALS: BP 150/92
[2020-10-09 22:00] VITALS: BP 146/88
[2020-10-10 06:00] VITALS: BP 157/88
[2020-10-10 06:17] LABS: HEMATOCRIT 41.2 % (36.0-47.0); HEMOGLOBIN 13.7 g/dl (12.0-15.5); MEAN CORPUSCULAR HEMOGLOBIN 30.6 pg (27.0-33.0); MEAN CORPUSCULAR HGB CONC 33.3 g/dl (32.0-36.5); MEAN CORPUSCULAR VOLUME 92.2 fl (80.0-96.0); PLATELET COUNT, AUTOMATED 161 10^3/uL (150-450); RED BLOOD COUNT 4.47 10^6/uL (4.00-5.40); WHITE BLOOD COUNT 4.7 10^3/uL (4.0-10.0)
[2020-10-10 06:41] LABS: ALBUMIN 2.4 GM/DL (3.2-5.2); ALT/SGPT 282 U/L (12-78); BILIRUBIN,TOTAL 0.6 MG/DL (0.2-1.0); BLOOD UREA NITROGEN 14 MG/DL (7-18); CALCIUM LEVEL 8.1 MG/DL (8.5-10.1); CARBON DIOXIDE LEVEL 25 MEQ/L (21-32); CHLORIDE LEVEL 106 MEQ/L (98-107); CREATININE FOR GFR 0.55 MG/DL (0.55-1.30); GLOMERULAR FILTRATION RATE > 60.0 (>51); GLUCOSE, FASTING 137 MG/DL (70-100); POTASSIUM SERUM 3.9 MEQ/L (3.5-5.1); SODIUM LEVEL 138 MEQ/L (136-145); TOTAL PROTEIN 6.1 GM/DL (6.4-8.2)
[2020-10-10] MEDS: LEVALBUTEROL 1.25 MG/0.5 ML CONCENTRATE NEB NEB SCH ×3 (07:29→15:12)
[2020-10-10] MEDS: guaiFENesin/CODEINE SYRUP 5 ML UDC PO SCH ×4 (08:34→20:33)
[2020-10-10] MEDS: ENOXAPARIN 40MG/0.4ML SYRINGE (J1650 PER 10MG) SC SCH (08:34)
[2020-10-10] MEDS: methylPREDNISolone 125MG 2ML VIAL IV SCH (08:35)
[2020-10-10] MEDS: FOLIC ACID 1 MG TAB PO SCH (08:35)
[2020-10-10] MEDS: MULTIVITAMIN/MINERALS LIQUID 15ML ORAL SYRINGE PO SCH (08:35)
[2020-10-10] MEDS: lisinopriL 5 MG TAB PO SCH (08:36)
[2020-10-10 10:37] LABS: HEPATITIS B SURFACE ANTIGEN NEGATIVE (NEGATIVE)
[2020-10-10 11:05] LABS: HEPATITIS B CORE ANTIBODY IGM NEGATIVE (NEGATIVE)
[2020-10-10 11:06] LABS: HEPATITIS A ANTIBODY IGM NEGATIVE (NEGATIVE)
[2020-10-10 11:13] LABS: HEPATITIS C VIRUS ABY INDEX > 11.0 INDEX (<0.8)
[2020-10-10 14:00] VITALS: BP 132/78
--- NOTE | 2020-10-10 17:21 | IPNPDOC ---
Date Seen The patient was seen on 10/10/20. Progress Note SUBJECTIVE: Transitioned to PO steroids. Did well with PT and was cleared, she states to feel unsteady on her feet. When attempted to be discharged she states she has "nowhere to go". Says her boyfriend will not let her go back to the hotel they were staying at, her home has no heat. SW is involved as she refused to go today. Denies chest pain, incr SOB, fevers, chills. OBJECTIVE: PHYSICAL EXAMINATION: VS:Please see below CONSTITUTIONAL: No acute distress, resting comfortably sitting up in bed, AAO x 3 EYES: PERRLA, EOM intact HENT, MOUTH: Normocephalic, atraumatic, moist mucous membranes NECK: SUPPLE, no JVD, no lymphadenopathy, no carotid bruit CV: NSR, S1S2 normal, no murmurs/rubs/gallops RESPIRATORY: CTAB, no rales/rhonchi/wheezing GI: BS positive in 4 quadrants, soft, nontender, nondistended, no rebound or guarding, no organomegaly : Deferred MUSCULOSKELETAL: Normal ROM. No cyanosis, clubbing, swelling, joint deformity, extremity edema INTEGUMENTARY: Intact, no rashes, no lesions, no erythema NEUROLOGIC: Cranial Nerves II-XII are intact, no focal deficits PSYCHIATRIC: Mood and affect are normal LABORATORY DATA: Please see below IMAGING: US abd: Questionable small amount of gallbladder sludge but no gallstones or sonographic evidence of cholecystitis. No biliary ductal dilatation. Severe fatty infiltration of the liver. Echocardiogram 10/06/20: EF 75% Sinus tachycardia without intraventricular conduction disturbance. Technically difficult study in light of the patients pulmonary disease, but some diagnostically useful information was still obtained. Normal left ventricular size, wall thickness, and hyperkinetic wall motion no localized wall motion abnormality despite indeterminate troponin I levels. Normal left atrial size with grade 1 LV diastolic dysfunction, but currently normal estimated mean left atrial pressure. Normal right heart chamber sizes and hyperkinetic wall motion with Doppler sign to suggest moderate pulmonary hypertension. Normal IVC size and collapse against an elevated central venous pressure. Normal aortic dimensions. Mild aortic valvular sclerosis without stenosis and only trace insufficiency. Normal appearing mitral valve apparatus with trace physiological insufficiency. Normal appearing tricuspid valve with very mild to mild insufficiency. Could not completely rule out an intracardiac mass because of the technically difficulties with imaging with this patient. No pericardial effusion. CTA chest: No evidence for pulmonary embolus. No acute mediastinal or pleural parenchymal process. CXR: No acute findings. ASSESSMENT: 55-year-old female with past medical history of alcohol abuse, tob acco use, questionable COPD, history of GI bleed, history of grand mal seizures, hypertension admitted to PCU for acute hypercapnic and hypoxic respiratory failure likely secondary to COPD exacerbation. PLAN: Acute hypercapnic and hypoxic respiratory failure likely secondary to COPD exacerbation- resolved -Currently on RA, saturating well -Smoking history, never been tested for COPD as o/p -C/w prednisone (taper) at discharge. Does not have nebulizer at home but wrote script for her to get one. Will need albuterol nebulizer treatments on discharge med rec sent to pharmacy. Tachycardia likely 2/2 to dehydration from decreased PO intake, alcohol withdrawl- resolved -HR wnl. -Adequately hydrating -Alcohol withdrawl treated Alcohol withdrawl- resolved -Alcohol cessation discussed with patient his hospital stay -CIWA protocol with ativan, MV, thiamine, folate, IVFs. Chronic transaminitis likely 2/2 to fatty infiltration of liver, hx of alcohol abuse, Hepatitis? -US above -AST/ALT increased some today -Sightly elevated cholesterol and LDL -Hepatitis C Ab Index high: " screening test for Hepatitis C Virus was above the 1.0 cutoff index value and will be sent to reference lab [facility], [address] [place], [place] [address] for Hep C RNA JAG testing to confirm or exclude active Hepatitis C Virus infection. Screening test Positive samples with high index values (>11.0) usually (95%) confirm Positive, but <5 of every 100 samples with this result might be a false positive and Hep C RNA JAG testing will aid in patient management." -Recommend her to f/u with PCP about hepatitis lab above -CMP daily Unsteadiness, physical deconditioning-improved -PT- cleared for home but states to feel "weak and unsteady" still Hx of GI bleed -No s/s of bleeding -Monitor Hx of grand-mal seizures -Stable -Not on home meds -last seizure several years ago Tobacco use -Tobacco cessation done at bedside -Nicotine patch HTN. -Slightly elevated today -ACEi started here DVT px -Lovenox Resolved issues: Polycythemia likely 2/2 to hemoconcentration from dehydration Elevated troponin likely 2/2 to ischemic demand DISPOSITION: Social issue as patient does not have heat at home, has no where else to go. SW involved. Can be discharged likely on 10/11/20 with plan on housing. VS, I&O, 24H, Fishbone Vital Signs/I&O Vital Signs Date Time Temp Pulse Resp B/P (MAP) Pulse Ox O2 Delivery O2 Flow Rate FiO2 10/10/20 14:00 98.4 73 18 132/78 (96) 96 Room Air 10/08/20 00:00 0.0 10/06/20 12:45 35 I&O- Last 24 Hours up to 6 AM 10/10/20 05:59 Intake Total 1410 ml Output Total 200 ml Balance 1210 ml Laboratory Data 24H LABS Laboratory Tests 2 10/10/20 05:33: Nucleated Red Blood Cells % (auto) 0.0, Anion Gap 7L, Glomerular Filtration Rate > 60.0, Calcium Level 8.1L, Total Bilirubin 0.6, Aspartate Amino Transf (AST/SGOT) 210H, Alanine Aminotransferase (ALT/SGPT) 282H, Alkaline Phosphatase 164H, Total Protein 6.1L, Albumin 2.4L, Albumin/Globulin Ratio 0.6L CBC/BMP Laboratory Tests 10/10/20 05:33 Microbiology Microbiology 10/06/20 Respiratory Virus Panel (PCR) ([facility]) - Final, Complete Current Medications Current Medications Medications (Trade) Dose Ordered Sig/Roe Route PRN Reason Start Time Stop Time Status Last Admin Dose Admin Albuterol Sulfate (Proventil, Ventolin Hfa) 2 puff Q4HP PRN INH SHORTNESS OF BREATH 10/10/20 17:30 UNV Albuterol/ Ipratropium (Duoneb (Ipr 0.5mg/Alb 2.5mg)) 3 ml Q20M NEB 10/06/20 05:45 10/06/20 06:26 DC 10/06/20 05:55 Codeine Phosphate/ Guaifenesin (Robitussin Ac) 5 ml QID PO 10/07/20 17:00 10/10/20 16:29 Enoxaparin Sodium (Lovenox) 40 mg DAILY SC 10/07/20 09:00 10/10/20 08:34 Folic Acid (Folic Acid) 1 mg DAILY PO 10/06/20 09:00 10/10/20 08:35 Guaifenesin (Mucinex Tab Er) 1,200 mg BID PO 10/06/20 21:00 10/06/20 15:18 DC Guaifenesin (Robitussin) 15 ml Q8HP PRN PO COUGH 10/06/20 15:30 10/07/20 15:23 DC 10/07/20 10:50 Home Med (Med Rec Complete!) ASDIRECTED XX 10/06/20 13:00 10/06/20 12:57 DC Levalbuterol HCl (Xopenex Neb) 1.25 mg Q2HP PRN NEB SOB/WHEEZING 10/06/20 13:00 10/10/20 17:21 DC Levalbuterol HCl (Xopenex Neb) 1.25 mg RQID NEB 10/06/20 12:00 10/10/20 17:21 DC 10/10/20 15:12 Lisinopril (Prinivil) 5 mg DAILY PO 10/09/20 09:00 10/10/20 08:36 Lorazepam (Ativan) 2 mg ASDIRECTED PRN PO SEE PROTOCOL 10/06/20 13:00 10/08/20 22:12 DC 10/07/20 15:08 Methylprednisolone (SOLUmedrol) 60 mg BID IV 10/08/20 21:00 10/10/20 08:43 DC 10/10/20 08:35 Methylprednisolone (SOLUmedrol) 60 mg Q8H IV 10/06/20 14:00 10/08/20 13:39 DC 10/08/20 13:19 Multivitamins (Theragram-M) 1 tab DAILY PO 10/06/20 09:00 10/06/20 15:18 DC 10/06/20 14:49 Multivitamins (Theragram-M) 1 tab DAILY PO 10/11/20 09:00 Multivitamins/ Minerals Therapeutic (Certavite Liquid) 15 ml DAILY PO 10/07/20 09:00 10/10/20 14:36 DC 10/10/20 08:35 Potassium Chloride 10 meq/ IV Miscellaneous Supplies 100 ml @ 100 mls/hr 0130,0230 IV 10/07/20 01:30 10/07/20 06:30 DC 10/07/20 02:35 Prednisone (Deltasone) 60 mg DAILY PO 10/11/20 09:00 Sodium Chloride 1,000 ml @ 100 mls/hr Q10H IV 10/06/20 13:00 10/07/20 07:31 DC 10/07/20 01:23 Sodium Chloride 1,000 ml @ 100 mls/hr Q10H IV 10/07/20 15:30 10/07/20 15:24 DC Sodium Chloride 1,000 ml @ 100 mls/hr Q10H IV 10/07/20 15:30 10/08/20 08:20 DC 10/08/20 02:05 Thiamine HCl (Thiamine HCl) 100 mg BID PO 10/06/20 13:15 10/08/20 21:01 DC 10/08/20 20:10 Allergies Coded Allergies: ibuprofen (Verified Allergy, Intermediate, 06/15/20) Penicillins (Verified Adverse Reaction, Mild, 06/15/20) Shanita Yen MD Oct 10, 2020 17:21
[2020-10-10] MEDS ORDERED: ALBUTEROL 90 MCG/ACT 8GM HFA INHALER INH PRN (17:30)
[2020-10-10 22:00] VITALS: BP 131/78
[2020-10-11 06:00] VITALS: BP 158/80
[2020-10-11 06:37] LABS: HEMATOCRIT 43.4 % (36.0-47.0); HEMOGLOBIN 14.6 g/dl (12.0-15.5); MEAN CORPUSCULAR HEMOGLOBIN 30.9 pg (27.0-33.0); MEAN CORPUSCULAR HGB CONC 33.6 g/dl (32.0-36.5); MEAN CORPUSCULAR VOLUME 91.9 fl (80.0-96.0); PLATELET COUNT, AUTOMATED 150 10^3/uL (150-450); RED BLOOD COUNT 4.72 10^6/uL (4.00-5.40); WHITE BLOOD COUNT 5.1 10^3/uL (4.0-10.0)
[2020-10-11 07:06] LABS: ALBUMIN 2.2 GM/DL (3.2-5.2); ALT/SGPT 265 U/L (12-78); BILIRUBIN,TOTAL 0.7 MG/DL (0.2-1.0); BLOOD UREA NITROGEN 15 MG/DL (7-18); CARBON DIOXIDE LEVEL 28 MEQ/L (21-32); CHLORIDE LEVEL 104 MEQ/L (98-107); CREATININE FOR GFR 0.55 MG/DL (0.55-1.30); GLOMERULAR FILTRATION RATE > 60.0 (>51); GLUCOSE, FASTING 69 MG/DL (70-100); POTASSIUM SERUM 3.7 MEQ/L (3.5-5.1); SODIUM LEVEL 137 MEQ/L (136-145); TOTAL PROTEIN 5.4 GM/DL (6.4-8.2)
[2020-10-11] MEDS: MULTIVITAMINS/MINERALS THERAP 1 TAB PO SCH ×2 (08:23→08:32)
[2020-10-11] MEDS: FOLIC ACID 1 MG TAB PO SCH (08:23)
[2020-10-11] MEDS: guaiFENesin/CODEINE SYRUP 5 ML UDC PO SCH (08:23)
[2020-10-11] MEDS: ENOXAPARIN 40MG/0.4ML SYRINGE (J1650 PER 10MG) SC SCH (08:24)
[2020-10-11 08:25] VITALS: BP 129/75
[2020-10-11] MEDS: lisinopriL 5 MG TAB PO SCH (08:25)
[2020-10-11] MEDS ORDERED: predniSONE 20 MG TAB PO SCH (09:00)
[2020-10-11] MEDS ORDERED: PRED10TA2 PO (09:59)
[2020-10-11] MEDS ORDERED: SPIR1CAP INH (09:59)
[2020-10-11] MEDS ORDERED: LISI-898 PO (09:59)
[2020-10-11] MEDS ORDERED: PROV108A INH (09:59)
[2020-10-11] MEDS ORDERED: FOLI1TAB11 PO (10:00)
[2020-10-11] MEDS ORDERED: VITMTA PO (10:00)
[2020-10-11] MEDS ORDERED: PRIL20TA2 PO (10:00)
[2020-10-11] MEDS ORDERED: THIA100T7 PO (10:00)
[2020-10-11] MEDS ORDERED: NICO14DI6 TOP (10:02)
--- NOTE | 2020-10-11 10:39 | DSES ---
DISCHARGE SUMMARY DATE OF ADMISSION: 10/06/2020 DATE OF DISCHARGE: 10/11/2020 PRIMARY DISCHARGE DIAGNOSES: 1. COPD exacerbation. 2. Alcohol withdrawal. 3. Grade 1 left ventricular diastolic dysfunction. 4. Fatty liver. 5. Alcohol abuse. 6. History of grand mal seizures. 7. History of GI bleed. 8. Active tobacco abuse. 9. Hypertension. DISCHARGE MEDICATIONS: 1. Albuterol two puffs q.i.d. 2. Folic acid 1 mg daily. 3. Lisinopril 5 mg daily. 4. Multivitamin one tablet daily. 5. Omeprazole 20 mg daily. 6. Prednisone 10 mg tablets tapered. 7. Thiamine 100 mg daily. 8. Spiriva 18 mcg inhaled daily. 9. Nicotine patch 14 mg daily. HOSPITAL COURSE: A 55-year-old female admitted due to shortness of breath, found to have COPD exacerbation and went into alcohol withdrawal. Patient was kept on ciwa protocol, Ativan as needed, started on multivitamin, Thiamine, Folate, Solu-Medrol, nebulizers, supplemental oxygen. Chest x-ray showed no acute infiltrate. CT chest showed no pulmonary embolism or acute mediastinal pleural parenchymal process. Patient improved on I.V. Solu-Medrol and tapered down the prednisone. Blood pressure was 148 to 160 systolic, and given Lisinopril. Tobacco cessation counseling was provided for tobacco abuse. She is discharged in stable condition. Patient said that she had no place to go and was homeless. BFS contacted her mother, who will be taking her home. Echocardiogram showed ejection fraction of 75%, and grade 1 left ventricular diastolic dysfunction. PHYSICAL EXAMINATION ON DISCHARGE: VITAL SIGNS: Temperature 97.6, pulse 61, respiratory 20, blood pressure 129/75, 96% on room air. GENERAL: Awake, alert, oriented x3. Answers questions appropriately. No conversational dyspnea or use of respiratory accessory muscles. HEENT: Anicteric. No jaundice. No JVD. No thyromegaly. LUNGS: Diminished. Clear to auscultation. No wheezing or rales. Air entry is equal. No kyphoscoliosis. HEART: S1, S2, sinus rhythm. No murmurs, rubs or gallops. ABDOMEN: Soft, nontender. Non-distended. Positive bowel sounds. EXTREMITIES: No cyanosis, clubbing or pitting edema. LABORATORY DATA: White count 5.1, hemoglobin 14, hematocrit 43, platelet count 150,000. Sodium 137, potassium 3.5, chloride 104, bicarb 28, BUN 15, creatinine 0.55, glucose 69. AST 213, ALT 265, alkaline phosphatase 151. Total protein 5.4, albumin 2.2. Respiratory panel 10/06/2020 negative for COVID-19. IMAGING STUDIES: CT scan showed no acute cardiopulmonary process, no pulmonary embolus. Ultrasound of the abdomen from 10/08/2020 showed gallbladder sludge but no gallstones, no biliary ductal dilatation, severe fatty infiltration of the liver. TIME SPENT ON DISCHARGE: 30 minutes. MTDD
== END 2020-10-11 12:15 | disposition home or self-care (01) | DRG 140 ==
LOC: M ED 05:28 → M ED INP 12:45 → M PCU 14:09 → M MSPAV 10-07 17:36
PROVIDERS: ADMIT Internal Medicine; ATTEND General Practice
DX: J44.1 Chronic obstructive pulmonary disease with (acute) exacerbation (principal); J96.01 Acute respiratory failure with hypoxia; I24.8 Other forms of acute ischemic heart disease; D75.1 Secondary polycythemia; K76.0 Fatty (change of) liver, not elsewhere classified; F17.200 Nicotine dependence, unspecified, uncomplicated; I10 Essential (primary) hypertension; Z79.899 Other long term (current) drug therapy; Z88.0 Allergy status to penicillin; Z88.6 Allergy status to analgesic agent

== ENCOUNTER → 2020-11-08 | Outpatient (REF) | payer MEDICAID, OTHER ==
[~2020-11-08] MED LIST changes: +FOLI1TAB11 PO; +LISI-898 PO; +NICO14DI6 TOP; +PRED10TA2 PO; +PRIL20TA2 PO; +SPIR1CAP INH; +THIA100T7 PO; +VITMTA PO
[2020-11-08 17:11] LABS: HEMATOCRIT 44.8 % (36.0-47.0); HEMOGLOBIN 14.8 g/dl (12.0-15.5); MEAN CORPUSCULAR HEMOGLOBIN 31.3 pg (27.0-33.0); MEAN CORPUSCULAR VOLUME 94.7 fl (80.0-96.0); PLATELET COUNT, AUTOMATED 268 10^3/uL (150-450); RED BLOOD COUNT 4.73 10^6/uL (4.00-5.40); WHITE BLOOD COUNT 7.7 10^3/uL (4.0-10.0)
[2020-11-08 17:23] LABS: HEMOGLOBIN A1c 5.4 %
[2020-11-08 17:34] LABS: ALBUMIN 3.5 GM/DL (3.2-5.2); ALT/SGPT 79 U/L (12-78); BILIRUBIN,TOTAL 0.5 MG/DL (0.2-1.0); BLOOD UREA NITROGEN 13 MG/DL (7-18); CALCIUM LEVEL 9.2 MG/DL (8.5-10.1); CARBON DIOXIDE LEVEL 29 MEQ/L (21-32); CHLORIDE LEVEL 105 MEQ/L (98-107); CHOLESTEROL LEVEL 234 MG/DL (<200); CHOLESTEROL RISK RATIO 6.157 (<5); CREATININE FOR GFR 0.48 MG/DL (0.55-1.30); GLOMERULAR FILTRATION RATE > 60.0 (>51); GLUCOSE, FASTING 95 MG/DL (70-100); HDL CHOLESTEROL 38 MG/DL (>40); LDL CHOLESTEROL 168 MG/DL (<100); NON-HDL-C 196 MG/DL; POTASSIUM SERUM 4.1 MEQ/L (3.5-5.1); SODIUM LEVEL 140 MEQ/L (136-145); TOTAL PROTEIN 7.5 GM/DL (6.4-8.2); TRIGLYCERIDES LEVEL 140 MG/DL (<150)
== END ==
LOC: M SFHCPLAZ 15:49
PROVIDERS: ATTEND Family Medicine
DX: Z86.2 Personal history of diseases of the blood and blood-forming organs and certain disorders involving the immune mechanism (principal); J44.1 Chronic obstructive pulmonary disease with (acute) exacerbation; R76.8 Other specified abnormal immunological findings in serum; Z13.1 Encounter for screening for diabetes mellitus; Z13.220 Encounter for screening for lipoid disorders

== ENCOUNTER → 2020-11-23 | Outpatient (CLI) | payer MEDICAID ==
--- NOTE | 2020-11-23 08:24 | PFTRPT ---
Height: 63.00 Inches Weight: 121.00 Lbs BSA: 1.56 Diagnosis: J44.1 DATE: 11/23/2020 ORDERING PHYSICIAN: Neville Paul, Pre and post bronchodilator studies have excellent technical quality. Forced vital capacity is reduced. FEV1 out of proportion. Obstructive index is therefore reduced. Expiratory limit of the flow-volume loop does suggest significant flow rate limitation. Very favorable bronchodilator response is identified. Total lung capacity is normal. Residual volume suggests significant air trapping. Diffusing capacity although reduced is appropriate for alveolar volume. No hemoglobin available for correction. Airway resistance borderline elevated with concomitant changes in the airway conductance. IMPRESSION: Mild to moderate obstructive ventilatory impairment with concomitant air trapping. Significant bronchodilator response. Please correlate clinically. MTDD
== END ==
LOC: M CARPUL 07:56
PROVIDERS: ATTEND Family Medicine
DX: J44.1 Chronic obstructive pulmonary disease with (acute) exacerbation (principal)

== ENCOUNTER 2020-12-10 00:01 | Emergency (ER) | payer MEDICAID, OTHER ==
[~2020-12-10] VITALS: Ht 160 cm; Wt 54.5 kg
[2020-12-10 01:20] LABS: HEMATOCRIT 44.8 % (36.0-47.0); HEMOGLOBIN 15.5 g/dl (12.0-15.5); MEAN CORPUSCULAR HEMOGLOBIN 31.3 pg (27.0-33.0); MEAN CORPUSCULAR HGB CONC 34.6 g/dl (32.0-36.5); MEAN CORPUSCULAR VOLUME 90.3 fl (80.0-96.0); PLATELET COUNT, AUTOMATED 230 10^3/uL (150-450); RED BLOOD COUNT 4.96 10^6/uL (4.00-5.40); WHITE BLOOD COUNT 5.3 10^3/uL (4.0-10.0)
[2020-12-10 01:31] LABS: INR 0.97; PARTIAL THROMBOPLASTIN TIME 32.6 SECONDS (24.2-38.5); PROTHROMBIN TIME 13.1 SECONDS (12.5-14.3)
[2020-12-10 01:41] LABS: ATYPICAL LYMPH 11 % (0-5); BASOPHILS 1 % (0-1); EOSINOPHILS 9 % (0-3); LYMPHOCYTES 38 % (16-44); MONOCYTES 9 % (0-5); NEUTROPHILS 32 % (28-66); PLATELET ESTIMATE NORMAL (NORMAL)
[2020-12-10 01:56] LABS: ALBUMIN 3.4 GM/DL (3.2-5.2); ALT/SGPT 160 U/L (12-78); BILIRUBIN,DIRECT 0.2 MG/DL (0.0-0.2); BILIRUBIN,TOTAL 0.3 MG/DL (0.2-1.0); BLOOD UREA NITROGEN 7 MG/DL (7-18); CARBON DIOXIDE LEVEL 26 MEQ/L (21-32); CHLORIDE LEVEL 108 MEQ/L (98-107); CK-MB VALUE MASS < 1.0 NG/ML (<3.6); CPK CREATINE PHOSPHOKINASE 21 U/L (26-192); FREE T4 1.42 NG/DL (0.76-1.46); GLOMERULAR FILTRATION RATE > 60.0 (>51); GLUCOSE, FASTING 106 MG/DL (70-100); MB/CK RELATIVE INDEX 4.76 (< OR =4); NT-PRO BNP 82 PG/ML (<125); POTASSIUM SERUM 3.7 MEQ/L (3.5-5.1); SODIUM LEVEL 142 MEQ/L (136-145); THYROID STIMULATING HORMONE 0.829 uIU/ML (0.358-3.740); TOTAL PROTEIN 7.3 GM/DL (6.4-8.2); TROPONIN I < 0.02 NG/ML (< 0.10)
[2020-12-10] MEDS ORDERED: COMBIVENT RESPIMAT 100-20MCG INHALER 4GM INH ONE (02:45)
[2020-12-10] MEDS ORDERED: methylPREDNISolone 125MG 2ML VIAL IV ONE (02:45)
[2020-12-10 03:00] LABS: ETHYL ALCOHOL (ETHANOL) 0.282 % (0.000-0.010)
[2020-12-10 04:01] LABS: ABG BASE EXCESS -1.1 (-2.0-2.0); ABG HCO3 24.1 MEQ/L (22.0-26.0); ABG O2 SATURATION 95.3 % (95.0-99.0); ABG PARTIAL PRESSURE O2 82.6 mmHg (75.0-100.0); ABG STANDARD HCO3 23.5 MEQ/L (22.0-26.0); ABG TOTAL CO2 25.4 MEQ/L (22.0-29.0); ABG pH (ARTERIAL) 7.377 UNITS (7.350-7.450)
[2020-12-10] MEDS ORDERED: ISOVUE-370 76% 100ML VIAL As Ordered ONE (04:23)
[2020-12-10] MEDS ORDERED: IPRATROPIUM 0.5MG/ALBUTEROL 2.5MG INH SOL UD 3ML (DUONEB) NEB ONE (06:20)
--- NOTE | 2020-12-10 07:44 | REP ---
INDICATION: CHEST PAIN. COMPARISON: Comparison chest x-ray October 06, 2020. TECHNIQUE: Two views.. FINDINGS: The lungs are well inflated and free of infiltrate. The pleural angles are sharp. The heart size is normal. Pulmonary vasculature is not increased. No significant bony abnormality is seen. EKG monitoring electrodes are seen. IMPRESSION: Negative chest x-ray. <Electronically signed by Jimmy Stuart > 12/10/20 [id number]
--- NOTE | 2020-12-10 09:43 | ECGEPIP ---
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
[2020-12-10] MEDS ORDERED: PRED20TA PO (12:01)
[2020-12-10 12:31] VITALS: BP 142/83
== END 2020-12-10 13:00 | disposition home or self-care (01) ==
LOC: M ED 00:01
DX: F10.129 Alcohol abuse with intoxication, unspecified (principal); J44.9 Chronic obstructive pulmonary disease, unspecified; R06.02 Shortness of breath; F10.10 Alcohol abuse, uncomplicated; R56.9 Unspecified convulsions; F17.200 Nicotine dependence, unspecified, uncomplicated; Z79.899 Other long term (current) drug therapy; Z88.0 Allergy status to penicillin; Z88.6 Allergy status to analgesic agent
CPT/HCPCS: 36600; 71046; 71275; 80048; 80076; 82077; 82550; 82553; 82803; 83880; 84439; 84443; 85025; 85610; 85730; 87798; 93005; 93041; 94640; 96374; 99285; J2930; Q9967

== ENCOUNTER 2021-01-09 21:03 | Emergency (ER) | payer MEDICAID, OTHER ==
[~2021-01-09] VITALS: Ht 157.5 cm; Wt 56.8 kg
[2021-01-09] MEDS ORDERED: COMBIVENT RESPIMAT 100-20MCG INHALER 4GM INH SCH (22:20)
[2021-01-09] MEDS ORDERED: methylPREDNISolone 125MG 2ML VIAL IV ONE (22:20)
[2021-01-09 22:53] LABS: ABG BASE EXCESS -0.5 (-2.0-2.0); ABG HCO3 23.1 MEQ/L (22.0-26.0); ABG O2 SATURATION 92.9 % (95.0-99.0); ABG PARTIAL PRESSURE CO2 35.2 mmHg (35.0-45.0); ABG PARTIAL PRESSURE O2 65.6 mmHg (75.0-100.0); ABG TOTAL CO2 24.2 MEQ/L (22.0-29.0); ABG pH (ARTERIAL) 7.435 UNITS (7.350-7.450)
[2021-01-09 23:06] LABS: BASO % 0.8 % (0.0-1.0); EOS # 0.4 10^3/uL (0.0-0.5); EOS % 7.6 % (0.0-3.0); HEMATOCRIT 47.9 % (36.0-47.0); HEMOGLOBIN 16.4 g/dl (12.0-15.5); LYMPH # 2.1 10^3/uL (1.5-5.0); LYMPH % 44.2 % (24.0-44.0); MEAN CORPUSCULAR HEMOGLOBIN 31.2 pg (27.0-33.0); MEAN CORPUSCULAR HGB CONC 34.2 g/dl (32.0-36.5); MEAN CORPUSCULAR VOLUME 91.1 fl (80.0-96.0); MONO # 0.4 10^3/uL (0.0-0.8); MONO % 8.1 % (2.0-8.0); NEUTROPHILS # 1.8 10^3/uL (1.5-8.5); NEUTROPHILS % 39.1 % (36.0-66.0); PLATELET COUNT, AUTOMATED 197 10^3/uL (150-450); RED BLOOD COUNT 5.26 10^6/uL (4.00-5.40); WHITE BLOOD COUNT 4.7 10^3/uL (4.0-10.0)
[2021-01-09 23:20] LABS: ALBUMIN 3.1 GM/DL (3.2-5.2); ALT/SGPT 220 U/L (12-78); BILIRUBIN,DIRECT < 0.1 MG/DL (0.0-0.2); BILIRUBIN,TOTAL 0.6 MG/DL (0.2-1.0); BLOOD UREA NITROGEN 7 MG/DL (7-18); CALCIUM LEVEL 8.8 MG/DL (8.5-10.1); CARBON DIOXIDE LEVEL 26 MEQ/L (21-32); CHLORIDE LEVEL 106 MEQ/L (98-107); CK-MB VALUE MASS < 1.0 NG/ML (<3.6); CPK CREATINE PHOSPHOKINASE 58 U/L (26-192); CREATININE FOR GFR 0.36 MG/DL (0.55-1.30); ETHYL ALCOHOL (ETHANOL) 0.223 % (0.000-0.010); GLOMERULAR FILTRATION RATE > 60.0 (>51); GLUCOSE, FASTING 95 MG/DL (70-100); MB/CK RELATIVE INDEX 1.72 (< OR =4); NT-PRO BNP 46 PG/ML (<125); POTASSIUM SERUM 4.4 MEQ/L (3.5-5.1); SODIUM LEVEL 140 MEQ/L (136-145); TOTAL PROTEIN 7.5 GM/DL (6.4-8.2); TROPONIN I < 0.02 NG/ML (< 0.10)
--- NOTE | 2021-01-09 23:59 | REPVR ---
PROCEDURE INFORMATION: Exam: XR Chest Exam date and time: 01/09/2021 10:35 PM Age: 56 years old Clinical indication: Cough and dyspnea; Additional info: Dyspnea/cough TECHNIQUE: Imaging protocol: XR of the chest. Views: 1 view. COMPARISON: CR Chest, 2 view PA, Lat 12/10/2020 1:03 AM FINDINGS: Lungs: Unremarkable. No consolidation. Pleural spaces: Unremarkable. No pleural effusion. No pneumothorax. Heart/Mediastinum: Unremarkable. No cardiomegaly. Bones/joints: Unremarkable. IMPRESSION: No acute findings. Electronically signed by: Shai Loco On 01/09/2021 23:59:10 PM
[2021-01-10 00:30] VITALS: BP 158/87
[2021-01-10] MEDS ORDERED: PRED10TA2 PO (00:32)
--- NOTE | 2021-01-10 06:06 | ECGEPIP ---
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
== END 2021-01-10 00:46 | disposition home or self-care (01) ==
LOC: M ED 21:03
DX: J44.1 Chronic obstructive pulmonary disease with (acute) exacerbation (principal); F10.129 Alcohol abuse with intoxication, unspecified; Z79.899 Other long term (current) drug therapy; Z88.0 Allergy status to penicillin; Z88.6 Allergy status to analgesic agent
CPT/HCPCS: 36600; 71045; 80048; 80076; 82077; 82550; 82553; 82803; 83605; 83880; 85025; 87040; 87798; 93005; 93041; 96374; 99285; J2930

== ENCOUNTER 2021-03-26 20:03 | Emergency (ER) | payer OTHER ==
[~2021-03-26] VITALS: Ht 157.5 cm; Wt 56.8 kg
[2021-03-26 20:18] VITALS: BP 124/94
[2021-03-26] MEDS ORDERED: dexameTHASONE 20MG/5ML VIAL (J1100 PER 1MG) As Ordered ONE (20:27)
[2021-03-26] MEDS ORDERED: IPRATROPIUM 0.5MG/ALBUTEROL 2.5MG INH SOL UD 3ML (DUONEB) As Ordered ONE (20:27)
[2021-03-26] MEDS ORDERED: methylPREDNISolone 125MG 2ML VIAL IV ONE (20:35)
[2021-03-26] MEDS ORDERED: COMBIVENT RESPIMAT 100-20MCG INHALER 4GM INH STA (20:35)
--- NOTE | 2021-03-26 20:48 | REPVR ---
PROCEDURE INFORMATION: Exam: XR Chest Exam date and time: 03/26/2021 8:44 PM Age: 56 years old Clinical indication: Cough and dyspnea; Additional info: Dyspnea/cough TECHNIQUE: Imaging protocol: XR of the chest. Views: 1 view. COMPARISON: CR PORTABLE CHEST X-RAY 01/09/2021 10:24 PM FINDINGS: Lungs: Unremarkable. No consolidation. Pleural spaces: Unremarkable. No pleural effusion. No pneumothorax. Heart/Mediastinum: Unremarkable. No cardiomegaly. Bones/joints: Unremarkable. IMPRESSION: Negative chest without change from 01/09/2021. Electronically signed by: Mart James On 03/26/2021 20:48:28 PM
[2021-03-26 21:22] LABS: BASO # 0.1 10^3/uL (0.0-0.2); BASO % 1.1 % (0.0-1.0); EOS # 0.4 10^3/uL (0.0-0.5); EOS % 8.1 % (0.0-3.0); HEMATOCRIT 46.6 % (36.0-47.0); HEMOGLOBIN 16.5 g/dl (12.0-15.5); LYMPH # 1.5 10^3/uL (1.5-5.0); LYMPH % 28.5 % (24.0-44.0); MEAN CORPUSCULAR HGB CONC 35.4 g/dl (32.0-36.5); MEAN CORPUSCULAR VOLUME 90.3 fl (80.0-96.0); MONO # 0.3 10^3/uL (0.0-0.8); MONO % 5.7 % (2.0-8.0); NEUTROPHILS % 56.4 % (36.0-66.0); PLATELET COUNT, AUTOMATED 147 10^3/uL (150-450); RED BLOOD COUNT 5.16 10^6/uL (4.00-5.40); WHITE BLOOD COUNT 5.3 10^3/uL (4.0-10.0)
[2021-03-26 22:44] LABS: ALBUMIN 3.3 GM/DL (3.2-5.2); ALT/SGPT 184 U/L (12-78); BILIRUBIN,DIRECT 0.4 MG/DL (0.0-0.2); BILIRUBIN,TOTAL 1.3 MG/DL (0.2-1.0); BLOOD UREA NITROGEN 7 MG/DL (7-18); CALCIUM LEVEL 8.9 MG/DL (8.5-10.1); CARBON DIOXIDE LEVEL 22 MEQ/L (21-32); CHLORIDE LEVEL 103 MEQ/L (98-107); CK-MB VALUE MASS 1.8 NG/ML (<3.6); CPK CREATINE PHOSPHOKINASE 67 U/L (26-192); CREATININE FOR GFR 0.41 MG/DL (0.55-1.30); GLOMERULAR FILTRATION RATE > 60.0 (>51); GLUCOSE, FASTING 122 MG/DL (70-100); MB/CK RELATIVE INDEX 2.69 (< OR =4); POTASSIUM SERUM 4.1 MEQ/L (3.5-5.1); SODIUM LEVEL 138 MEQ/L (136-145); THYROXINE (T4) 14.7 UG/DL (4.5-12.0); TOTAL PROTEIN 7.9 GM/DL (6.4-8.2); TROPONIN I < 0.02 NG/ML (< 0.10)
[2021-03-26] MEDS ORDERED: PRED20TA PO (22:50)
--- NOTE | 2021-03-27 19:50 | ECGEPIP ---
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
== END 2021-03-26 23:00 | disposition home or self-care (01) ==
LOC: M ED 20:03
DX: J44.1 Chronic obstructive pulmonary disease with (acute) exacerbation (principal); R94.5 Abnormal results of liver function studies; I10 Essential (primary) hypertension; F41.9 Anxiety disorder, unspecified; F10.10 Alcohol abuse, uncomplicated; F17.200 Nicotine dependence, unspecified, uncomplicated; Z88.0 Allergy status to penicillin; Z88.6 Allergy status to analgesic agent
CPT/HCPCS: 71045; 80048; 80076; 82550; 82553; 84436; 85025; 93005; 93041; 94640; 94760; 96374; 99284; J2930

== ENCOUNTER 2021-05-03 10:14 | Observation (INO) | payer OTHER ==
[~2021-05-03] VITALS: Ht 160 cm; Wt 49.3 kg
[2021-05-03] MEDS ORDERED: COMBIVENT RESPIMAT 100-20MCG INHALER 4GM INH ONE (10:40)
[2021-05-03] MEDS ORDERED: methylPREDNISolone 125MG 2ML VIAL IV ONE (10:40)
[2021-05-03 11:00] LABS: BASO # 0.1 10^3/uL (0.0-0.2); BASO % 0.9 % (0.0-1.0); EOS # 0.4 10^3/uL (0.0-0.5); EOS % 7.6 % (0.0-3.0); HEMATOCRIT 46.3 % (36.0-47.0); HEMOGLOBIN 16.2 g/dl (12.0-15.5); LYMPH # 1.4 10^3/uL (1.5-5.0); LYMPH % 26.5 % (24.0-44.0); MEAN CORPUSCULAR HEMOGLOBIN 32.3 pg (27.0-33.0); MEAN CORPUSCULAR VOLUME 92.4 fl (80.0-96.0); MONO # 0.6 10^3/uL (0.0-0.8); NEUTROPHILS # 2.9 10^3/uL (1.5-8.5); NEUTROPHILS % 53.8 % (36.0-66.0); PLATELET COUNT, AUTOMATED 153 10^3/uL (150-450); RED BLOOD COUNT 5.01 10^6/uL (4.00-5.40); WHITE BLOOD COUNT 5.4 10^3/uL (4.0-10.0)
[2021-05-03 11:07] LABS: ABG BASE EXCESS 2.2 (-2.0-2.0); ABG O2 SATURATION 93.9 % (95.0-99.0); ABG PARTIAL PRESSURE CO2 38.1 mmHg (35.0-45.0); ABG PARTIAL PRESSURE O2 69.5 mmHg (75.0-100.0); ABG STANDARD HCO3 26.3 MEQ/L (22.0-26.0); ABG TOTAL CO2 27.2 MEQ/L (22.0-29.0); ABG pH (ARTERIAL) 7.452 UNITS (7.350-7.450)
[2021-05-03 11:28] LABS: INR 1.06; PROTHROMBIN TIME 14.2 SECONDS (12.7-14.5)
[2021-05-03 11:31] LABS: D-DIMER QUANT 275.79 ng/ml (<500)
--- NOTE | 2021-05-03 12:00 | REP ---
INDICATION: DYSPNEA/COUGH. COMPARISON: 03/26/2021. TECHNIQUE: Single portable AP view of the chest was performed. FINDINGS: There is no acute infiltrate or pulmonary edema. Lungs are clear. The heart is not significantly enlarged. The mediastinal silhouette is unremarkable. The visualized osseous structures are intact. IMPRESSION: No acute pulmonary disease. <Electronically signed by Federico Pierce > 05/03/21 [id number]
[2021-05-03 12:06] LABS: ALBUMIN 2.9 GM/DL (3.2-5.2); ALT/SGPT 129 U/L (12-78); BILIRUBIN,DIRECT 0.5 MG/DL (0.0-0.2); BILIRUBIN,TOTAL 1.5 MG/DL (0.2-1.0); BLOOD UREA NITROGEN 7 MG/DL (7-18); CARBON DIOXIDE LEVEL 26 MEQ/L (21-32); CHLORIDE LEVEL 107 MEQ/L (98-107); CK-MB VALUE MASS 1.2 NG/ML (<3.6); CPK CREATINE PHOSPHOKINASE 31 U/L (26-192); CREATININE FOR GFR 0.47 MG/DL (0.55-1.30); GLOMERULAR FILTRATION RATE > 60.0 (>51); GLUCOSE, FASTING 152 MG/DL (70-100); MB/CK RELATIVE INDEX 3.87 (< OR =4); NT-PRO BNP 199 PG/ML (<125); POTASSIUM SERUM 4.2 MEQ/L (3.5-5.1); SODIUM LEVEL 139 MEQ/L (136-145); TOTAL PROTEIN 7.1 GM/DL (6.4-8.2); TROPONIN I < 0.02 NG/ML (< 0.10)
[2021-05-03] MEDS ORDERED: IPRATROPIUM 0.5MG/ALBUTEROL 2.5MG INH SOL UD 3ML (DUONEB) NEB ONE (14:25)
--- NOTE | 2021-05-03 15:19 | REP ---
INDICATION: SOB. COMPARISON: Comparison chest CT study December 10, 2020. TECHNIQUE: Helical scanning is acquired. 3 mm axial images are generated. Coronal and sagittal MPR and coronal MIP images are generated. FINDINGS: Preliminary digital supervisor sleeping bag department radiograph shows some hyperinflation. There is a granulomatous calcification in the superior segment of the right lower lobe no significant pulmonary nodule is appreciated. No lung mass or new infiltrate is seen. There is no evidence of pleural or pericardial effusion. No hilar or mediastinal mass or adenopathy is observed. Fatty infiltration is seen in the liver. Vascular calcifications noted. Since this includes the left coronary artery which is heavily calcified. No bony destructive lesion is appreciated. IMPRESSION: No evidence of infiltrate atelectasis or effusion. Vascular calcification including coronary arteries. Old granulomatous calcification right lower lobe. No acute disease. <Electronically signed by Jimmy Stuart > 05/03/21 [id number]
[2021-05-03] MEDS ORDERED: HOME MED LIST COMPLETE! XX SCH (16:00)
[2021-05-03] MEDS ORDERED: LORazepam 2 MG TAB PO PRN (17:00)
--- NOTE | 2021-05-03 17:07 | HPEPDOC ---
General Date of Admission Date of Service: May 03, 2021 Chief Complaint The patient is a 56-year-old female admitted with a reason for visit of Short Of Breath. History of Present Illness 56-year-old female with past medical history of COPD, Hepatitis C, Alcoholic abuse, alcohol abuse, hypertension, tobacco abuse, possible seizure, seizure disorder last seizure in her 20s, grade 1 diastolic dysfunction presented to the ED with 4 days history of shortness of breath. Patient does not have any primary care provider does not have any inhalers or nebulizers at home. Earlier this year she was set up with a primary care provider however had gone only once and then had stopped going. She reports she just has a rescue inhaler which she uses as needed. She reported increasing shortness of breath over 4 days with some wheezing and difficult to take deep breaths. No cough or phlegm. Denies any congestion or upper respiratory symptoms. Patient was treated with DuoNeb's in the ED with improvement in her symptoms however she refused to go home as she did not have a phone and was afraid that if her symptoms again worsened she would not be able to call for help. Work-up in the ED showed abnormal LFTs. Patient has history of hepatitis C when I told her about this she said that she did not however this was told to her during her primary care visit. She denied alcohol use however review of chart shows that she has repeated ED presentations in an intoxicated state with alcohol levels of more than 0.2 and during last hospitalization earlier in this year she had gone into alcohol withdrawal. She is being admitted for COPD exacerbation. Home Medications No Active Prescriptions or Reported Meds Allergies Coded Allergies: Penicillins (Verified Allergy, Mild, rash, 05/03/21) ibuprofen (Verified Adverse Reaction, Mild, n/v, 05/03/21) Past Medical History Medical History COPD, Hepatitis C, Alcoholic abuse, alcohol abuse, hypertension, tobacco abuse, possible seizure, seizure disorder last seizure in her 20s, grade 1 diastolic dysfunction Surgical History Hystrectomy, appendectomy Family History Father: unknown history, in 80's Mother: Alive, says uses inhalers does not know why Social History * Smoker: current smoker Alcohol: heavy Drugs: denies A-FIB/CHADSVASC A-FIB History Current/History of A-Fib/PAF?: No Review of Systems Constitutional: Denies: Chills, Fever, Night Sweats Eyes: Denies: Pain, Vision change ENT: Denies: Head Aches, Ear Pain, Dysphagia Skin: Denies: Rash, Lesions, Breakdown Pulmonary: Reports: Dyspnea Cardiovascular: Denies: Chest Pain, Palpitations, Orthopnea, Paroxysmal Noc. Dyspnea, Lt Headedness Gastrointestinal: Denies: Nausea, Vomiting, Abdominal Pain, Diarrhea Genitourinary: Denies: Dysuria, Frequency, Incontinence, Retention Hematologic: Denies: Bruising, Bleeding Excessively Musculoskeletal: Denies: Neck Pain, Back Pain, Joint Pain, Muscle Pain, Spasms Physical Examination General Exam: Positive: Alert, Cooperative, No Acute Distress, Other (Tremulous) Eye Exam: Positive: PERRLA, Conjunctiva & lids normal, EOMI; Negative: Sclera icteric ENT Exam: Positive: Atraumatic, Mucous membr. moist/pink, Pharynx Normal Neck Exam: Positive: Supple; Negative: JVD, thyromegaly Chest Exam: Positive: Clear to auscultation, Diminished (Diminished bilateral air movement) Heart Exam: Positive: Rate Normal, Regular Rhythm, Normal S1, Normal S2; Negative: Murmurs, Rubs Abdomen Exam: Positive: Normal bowel sounds, Soft; Negative: Tenderness Extremity Exam: Negative: Clubbing, Cyanosis, Edema Skin Exam: Positive: Nl turgor and temperature; Negative: Breakdown, Lesion Neuro Exam: Positive: Strength at 5/5 X4 ext, Normal Tone Vital Signs Vital Signs Date Time Temp Pulse Resp B/P (MAP) Pulse Ox O2 Delivery O2 Flow Rate FiO2 05/03/21 10:58 97.8 142/90 (107) 05/03/21 10:44 114 22 92 Room Air Laboratory Data Labs 24H Laboratory Tests 2 05/03/21 10:40: Prothrombin Time 14.2H, Prothromb Time International Ratio 1.06, D-Dimer, Quantitative 275.79, Blood Gas Bicarbonate Standard 26.3H, Arterial Blood pH 7.452H, Arterial Blood Partial Pressure CO2 38.1, Arterial Blood Partial Pressure O2 69.5L, Arterial Blood Total CO2 27.2, Arterial Blood HCO3 26.0, Arterial Blood Base Excess 2.2H, Arterial Blood Oxygen Saturation 93.9L 05/03/21 10:47: Immature Granulocyte % (Auto) 0.2, Neutrophils (%) (Auto) 53.8, Lymphocytes (%) (Auto) 26.5, Monocytes (%) (Auto) 11.0H, Eosinophils (%) (Auto) 7.6H, Basophils (%) (Auto) 0.9, Neutrophils # (Auto) 2.9, Lymphocytes # (Auto) 1.4L, Monocytes # (Auto) 0.6, Eosinophils # (Auto) 0.4, Basophils # (Auto) 0.1, Nucleated Red Blood Cells % (auto) 0.0, Anion Gap 6L, Glomerular Filtration Rate > 60.0, Calcium Level 9.0, Total Bilirubin 1.5H, Direct Bilirubin 0.5H, Aspartate Amino Transf (AST/SGOT) 192H, Alanine Aminotransferase (ALT/SGPT) 129H, Alkaline Phosphatase 179H, Total Creatine Kinase 31, Creatine Kinase MB 1.2, Creatine Kinase MB Relative Index 3.87, Troponin I < 0.02, LN-Qjr-Y-Type Natriuretic Pept flynn 199H, Total Protein 7.1, Albumin 2.9L, Albumin/Globulin Ratio 0.7L, Thyroid Stimulating Hormone (TSH) 1.930 CBC/BMP Laboratory Tests 05/03/21 10:47 Microbiology Microbiology 05/03/21 Respiratory Virus Panel (PCR) (EVELYNE) - Final, Complete Assessment/Plan 56-year-old female with past medical history of COPD, Hepatitis C, Alcoholic abuse, alcohol abuse, hypertension, tobacco abuse, possible seizure, seizure disorder last seizure in her 20s, grade 1 diastolic dysfunction presented to the ED with 4 days history of shortness of breath. Patient does not have any primary care provider does not have any inhalers or nebulizers at home. Earlier this year she was set up with a primary care provider however had gone only once and then had stopped going. She reports she just has a rescue inhaler which she uses as needed. She reported increasing shortness of breath over 4 days with some wheezing and difficult to take deep breaths. No cough or phlegm. Denies any congestion or upper respiratory symptoms. Patient was treated with DuoNeb's in the ED with improvement in her symptoms however she refused to go home as she did not have a phone and was afraid that if her symptoms again worsened she would not be able to call for help. Work-up in the ED showed abnormal LFTs. Patient has history of hepatitis C when I told her about this she said that she did not however this was told to her during her primary care visit. She denied alcohol use however review of chart shows that she has repeated ED presentations in an intoxicated state with alcohol levels of more than 0.2 and during last hospitalization earlier this year she had gone into alcohol withdrawal. She is being admitted for COPD exacerbation. COPD exacerbation Due to noncompliance with medications and not following with PCP We will start on Combivent Prednisone Transaminitis Due to chronic hepatitis C and alcohol abuse Alcohol abuse With history of alcohol withdrawal in the prior admission We will put the patient on Serax and CIWA protocol Plan / VTE VTE Prophylaxis Ordered?: Yes Lachelle Worthy MD May 03, 2021 17:07
[2021-05-03 17:20] LABS: ETHYL ALCOHOL (ETHANOL) < 0.003 % (0.000-0.010)
[2021-05-03] MEDS: COMBIVENT RESPIMAT 100-20MCG INHALER 4GM INH SCH (20:00)
[2021-05-03] MEDS: THIAMINE 100 MG TAB PO SCH (20:45)
[2021-05-03] MEDS: OXAZEPAM 10 MG CAP PO SCH (20:45)
[2021-05-03 21:00] VITALS: BP 122/86
[2021-05-03 22:00] VITALS: BP 122/86
--- NOTE | 2021-05-04 05:55 | ECGEPIP ---
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
[2021-05-04 06:00] VITALS: BP_SYST 132; BP_SYST 138; BP_DIAS 64; BP_DIAS 86
[2021-05-04] MEDS: COMBIVENT RESPIMAT 100-20MCG INHALER 4GM INH SCH ×2 (07:16→11:22)
[2021-05-04 07:19] LABS: ALBUMIN 2.7 GM/DL (3.2-5.2); ALT/SGPT 106 U/L (12-78); BLOOD UREA NITROGEN 8 MG/DL (7-18); CALCIUM LEVEL 9.2 MG/DL (8.5-10.1); CARBON DIOXIDE LEVEL 27 MEQ/L (21-32); CHLORIDE LEVEL 106 MEQ/L (98-107); CREATININE FOR GFR 0.44 MG/DL (0.55-1.30); GLOMERULAR FILTRATION RATE > 60.0 (>51); GLUCOSE, FASTING 126 MG/DL (70-100); POTASSIUM SERUM 4.5 MEQ/L (3.5-5.1); SODIUM LEVEL 139 MEQ/L (136-145); TOTAL PROTEIN 6.9 GM/DL (6.4-8.2)
[2021-05-04] MEDS: THIAMINE 100 MG TAB PO SCH (08:51)
[2021-05-04] MEDS: OXAZEPAM 10 MG CAP PO SCH (08:51)
[2021-05-04] MEDS ORDERED: predniSONE 20 MG TAB PO SCH (09:00)
[2021-05-04] MEDS ORDERED: MULTIVITAMINS/MINERALS THERAP 1 TAB PO SCH (09:00)
[2021-05-04] MEDS ORDERED: FOLIC ACID 1 MG TAB PO SCH (09:00)
[2021-05-04] MEDS ORDERED: FLUBLOK(EGG FREE)(QUAD)INFLUENZA VACC 0.5ML SYRINGE 18YRS & OLDER IM ONE (09:00)
[2021-05-04] MEDS ORDERED: FOLI1TAB11 PO (10:28)
[2021-05-04] MEDS ORDERED: PRED20TA PO (10:28)
[2021-05-04] MEDS ORDERED: THIA100TA PO (10:28)
[2021-05-04] MEDS ORDERED: COMBAER6 INH (10:28)
--- NOTE | 2021-05-04 17:19 | IPNPDOC ---
Subjective Date Seen The patient was seen on 05/04/21. Subjective Chief Complaint/HPI Feels well this morning. Denies any shortness of breath or cough. Ready to go home. I went over the diagnosis is again with the patient regarding her COPD and hepatitis C and asked her to repeat the diagnosis is after me but she keeps on saying no I do not have those. She says that she she does not like to take any medications or follow with any doctors. I have given her referral to ID as well as set up an appointment with her primary care provider hopefully she will keep the appointments. Objective Physical Examination General Exam: Positive: Alert, Cooperative, No Acute Distress, Other (Tremulous) Eye Exam: Positive: PERRLA, Conjunctiva & lids normal, EOMI; Negative: Sclera icteric ENT Exam: Positive: Atraumatic, Mucous membr. moist/pink, Pharynx Normal Neck Exam: Positive: Supple; Negative: JVD, thyromegaly Chest Exam: Positive: Clear to auscultation, Diminished (Diminished bilateral air movement) Heart Exam: Positive: Rate Normal, Regular Rhythm, Normal S1, Normal S2; Negative: Murmurs, Rubs Abdomen Exam: Positive: Normal bowel sounds, Soft; Negative: Tenderness Extremity Exam: Negative: Clubbing, Cyanosis, Edema Skin Exam: Positive: Nl turgor and temperature; Negative: Breakdown, Lesion Neuro Exam: Positive: Strength at 5/5 X4 ext, Normal Tone Assessment /Plan Assessment 56-year-old female with past medical history of COPD, Hepatitis C, Alcoholic abuse, alcohol abuse, hypertension, tobacco abuse, possible seizure, seizure disorder last seizure in her 20s, grade 1 diastolic dysfunction presented to the ED with 4 days history of shortness of breath. Patient does not have any primary care provider does not have any inhalers or nebulizers at home. Earlier this year she was set up with a primary care provider however had gone only once and then had stopped going. She reports she just has a rescue inhaler which she uses as needed. She reported increasing shortness of breath over 4 days with some wheezing and difficult to take deep breaths. No cough or phlegm. Denies any congestion or upper respiratory symptoms. Patient was treated with DuoNeb's in the ED with improvement in her symptoms however she refused to go home as she did not have a phone and was afraid that if her symptoms again worsened she would not be able to call for help. Work-up in the ED showed abnormal LFTs. Patient has history of hepatitis C when I told her about this she said that she did not however this was told to her during her primary care visit. She denied alcohol use however review of chart shows that she has repeated ED presentations in an intoxicated state with alcohol levels of more than 0.2 and during last hospitalization earlier this year she had gone into alcohol withdrawal. She was admitted for COPD exacerbation. COPD exacerbation Due to noncompliance with medications and not following with PCP Better today Combivent and prednisone Transaminitis Due to chronic hepatitis C and alcohol abuse Will give referral to ID for consideration for hepatitis C treatment Alcohol abuse With history of alcohol withdrawal in the prior admission Reports has not has any drink for 2 months No signs of withdrawal in the hospital. Dispo; home Plan/VTE VTE Prophylaxis Ordered?: Yes VS, I&O, 24H, Fishbone Vital Signs/I&O Vital Signs Date Time Temp Pulse Resp B/P (MAP) Pulse Ox O2 Delivery O2 Flow Rate FiO2 05/04/21 06:00 96.8 94 16 132/64 (86) 93 Room Air I&O- Last 24 Hours up to 6 AM 05/04/21 06:00 Intake Total 360 ml Output Total 0 ml Balance 360 ml Laboratory Data 24H LABS Laboratory Tests 2 05/04/21 06:28: Anion Gap 6L, Glomerular Filtration Rate > 60.0, Calcium Level 9.2, Total Bilirubin 1.0, Aspartate Amino Transf (AST/SGOT) 116H, Alanine Aminotransferase (ALT/SGPT) 106H, Alkaline Phosphatase 175H, Total Protein 6.9, Albumin 2.7L, Albumin/Globulin Ratio 0.6L CBC/BMP Laboratory Tests 05/04/21 06:28 Microbiology Microbiology 05/03/21 Respiratory Virus Panel (PCR) (EVELYNE) - Final, Complete Lachelle Worthy MD May 04, 2021 17:19
--- NOTE | 2021-05-05 07:54 | DS.PDOC ---
Discharge Summary General Date of Admission May 03, 2021 at 10:15 Date of Discharge 05/04/21 Discharge Summary PROCEDURES PERFORMED DURING STAY: [None]. DISCHARGE DIAGNOSES: COPD exacerbation COMPLICATIONS/CHIEF COMPLAINT: Copd With Acute Exacerbation. HOSPITAL COURSE: 56-year-old female with past medical history of COPD, Hepatitis C, Alcoholic abuse, alcohol abuse, hypertension, tobacco abuse, possible seizure, seizure disorder last seizure in her 20s, grade 1 diastolic dysfunction presented to the ED with 4 days history of shortness of breath. Patient does not have any primary care provider does not have any inhalers or nebulizers at home. Earlier this year she was set up with a primary care provider however had gone only once and then had stopped going. She reports she just has a rescue inhaler which she uses as needed. She reported increasing shortness of breath over 4 days with some wheezing and difficult to take deep breaths. No cough or phlegm. Denies any congestion or upper respiratory symptoms. Patient was treated with DuoNeb's in the ED with improvement in her symptoms however she refused to go home as she did not have a phone and was afraid that if her symptoms again worsened she would not be able to call for help. Work-up in the ED showed abnormal LFTs. Patient has history of hepatitis C when I told her about this she said that she did not however this was told to her during her primary care visit. She denied alcohol use however review of chart shows that she has repeated ED presentations in an intoxicated state with alcohol levels of more than 0.2 and during last hospitalization earlier this year she had gone into alcohol withdrawal. She was admitted for COPD exacerbation. COPD exacerbation Due to noncompliance with medications and not following with PCP Better today Combivent and prednisone Transaminitis Due to chronic hepatitis C and alcohol abuse Will give referral to ID for consideration for hepatitis C treatment Alcohol abuse With history of alcohol withdrawal in the prior admission Reports has not has any drink for 2 months No signs of withdrawal in the hospital. DISCHARGE MEDICATIONS: Please see below. ALLERGIES: Please see below. PHYSICAL EXAMINATION ON DISCHARGE: VITAL SIGNS: Please see below. General Exam: Positive: Alert, Cooperative, No Acute Distress, Other (Tremulous) Eye Exam: Positive: PERRLA, Conjunctiva & lids normal, EOMI; Negative: Sclera icteric ENT Exam: Positive: Atraumatic, Mucous membr. moist/pink, Pharynx Normal Neck Exam: Positive: Supple; Negative: JVD, thyromegaly Chest Exam: Positive: Clear to auscultation, Diminished (Diminished bilateral air movement) Heart Exam: Positive: Rate Normal, Regular Rhythm, Normal S1, Normal S2; Negative: Murmurs, Rubs Abdomen Exam: Positive: Normal bowel sounds, Soft; Negative: Tenderness Extremity Exam: Negative: Clubbing, Cyanosis, Edema Skin Exam: Positive: Nl turgor and temperature; Negative: Breakdown, Lesion Neuro Exam: Positive: Strength at 5/5 X4 ext, Normal Tone LABORATORY DATA: Please see below. ACTIVITY: [As tolerated]. DIET: As tolerated DISPOSITION: Home, Self-Care. DISCHARGE INSTRUCTIONS: PMD in 1 week DISCHARGE CONDITION: [Stable]. TIME SPENT ON DISCHARGE: 31 minutes. Vital Signs/I&Os Vital Signs Date Time Temp Pulse Resp B/P (MAP) Pulse Ox O2 Delivery O2 Flow Rate FiO2 05/04/21 06:00 96.8 94 16 132/64 (86) 93 Room Air I&O- Last 24 Hours up to 6 AM 05/05/21 05:59 Intake Total 0 ml Output Total 0 ml Balance 0 ml Microbiology Microbiology 05/03/21 Respiratory Virus Panel (PCR) ([facility]) - Final, Complete Discharge Medications Scheduled Folic Acid (Folic Acid) 1 Mg Tablet, 1 MG PO DAILY Ipratropium/Albuterol Sulfate (Combivent Respimat 20-100 Mcg) 4 Gm Mist.inhal, 2 PUFF INH TID Prednisone (Prednisone) 20 Mg Tablet, 40 MG PO DAILY Thiamine Hcl (Vitamin B-1) 100 Mg Tablet, 100 MG PO BID Allergies Coded Allergies: Penicillins (Verified Allergy, Mild, rash, 05/03/21) ibuprofen (Verified Adverse Reaction, Mild, n/v, 05/03/21) Lachelle Worthy MD May 05, 2021 07:54
== END 2021-05-04 13:32 | disposition home or self-care (01) ==
LOC: M ED 10:14 → EDBD 10:14 → M ED INP 10:15 → M MSPAV 19:05
PROVIDERS: ADMIT Internal Medicine Nephrology; ATTEND Internal Medicine Nephrology
DX: J44.1 Chronic obstructive pulmonary disease with (acute) exacerbation (principal); Z91.19 Patient's noncompliance with other medical treatment and regimen; B18.2 Chronic viral hepatitis C; F10.10 Alcohol abuse, uncomplicated; I11.9 Hypertensive heart disease without heart failure; F17.218 Nicotine dependence, cigarettes, with other nicotine-induced disorders; I50.30 Unspecified diastolic (congestive) heart failure; R74.01 Elevation of levels of liver transaminase levels; Z79.899 Other long term (current) drug therapy; Z79.52 Long term (current) use of systemic steroids; Z88.0 Allergy status to penicillin; Z88.8 Allergy status to other drugs, medicaments and biological substances
CPT/HCPCS: 36415; 36600; 71045; 71250; 80048; 80053; 80076; 82077; 82550; 82553; 82803; 83880; 84443; 85025; 85379; 85610; 87798; 90471; 90682; 93005; 93041; 94640; 96374; 99285; J2930; J7512

== ENCOUNTER 2021-05-10 16:50 | Emergency (ER) | payer OTHER ==
[~2021-05-10] VITALS: Ht 157.5 cm; Wt 55.0 kg
[~2021-05-10 16:50] MED LIST changes: +COMBAER6 INH; +THIA100TA PO
--- NOTE | 2021-05-10 18:31 | REP ---
INDICATION: chest pain, shortness of breath. COMPARISON: 05/03/2021 TECHNIQUE: Portable FINDINGS: The technique utilized in obtaining the radiograph has magnified the cardiac silhouette and accentuated the interstitial markings. The superior mediastinal structures are midline. The cardiac silhouette is unremarkable in size, shape, and position. The diaphragmatic surfaces of the lungs are regular, and the costophrenic angles are clear. The pulmonary rodrigez are clear. The imaged osseous structures are intact. IMPRESSION: There is no acute cardiopulmonary disease. <Electronically signed by Carlyle Triplett > 05/10/21 [id number]
[2021-05-10 20:30] LABS: BASO % 0.5 % (0.0-1.0); EOS # 0.1 10^3/uL (0.0-0.5); EOS % 0.7 % (0.0-3.0); HEMATOCRIT 51.3 % (36.0-47.0); HEMOGLOBIN 17.7 g/dl (12.0-15.5); LYMPH # 1.2 10^3/uL (1.5-5.0); LYMPH % 15.1 % (24.0-44.0); MEAN CORPUSCULAR HGB CONC 34.5 g/dl (32.0-36.5); MEAN CORPUSCULAR VOLUME 92.8 fl (80.0-96.0); MONO # 0.2 10^3/uL (0.0-0.8); MONO % 2.2 % (2.0-8.0); NEUTROPHILS # 6.6 10^3/uL (1.5-8.5); NEUTROPHILS % 81.1 % (36.0-66.0); PLATELET COUNT, AUTOMATED 204 10^3/uL (150-450); RED BLOOD COUNT 5.53 10^6/uL (4.00-5.40); WHITE BLOOD COUNT 8.2 10^3/uL (4.0-10.0)
[2021-05-10 20:45] LABS: AMPHETAMINES LEVEL URINE NEGATIVE (NEGATIVE); BARBITURATES URINE NEGATIVE (NEGATIVE); BENZODIAZEPINES URINE NEGATIVE (NEGATIVE); CANNABINOIDS URINE NEGATIVE (NEGATIVE); COCAINE METABOLITE URINE NEGATIVE (NEGATIVE); METHADONE URINE NEGATIVE (NEGATIVE); OPIATES URINE NEGATIVE (NEGATIVE); PHENCYCLIDINE URINE NEGATIVE (NEGATIVE)
[2021-05-10 20:48] LABS: RSV AMPLIFICATION NEGATIVE (NEGATIVE)
[2021-05-10 20:49] LABS: ALBUMIN 3.1 GM/DL (3.2-5.2); ALT/SGPT 240 U/L (12-78); BLOOD UREA NITROGEN 9 MG/DL (7-18); CARBON DIOXIDE LEVEL 25 MEQ/L (21-32); CHLORIDE LEVEL 103 MEQ/L (98-107); CK-MB VALUE MASS 4.3 NG/ML (<3.6); CPK CREATINE PHOSPHOKINASE 52 U/L (26-192); CREATININE FOR GFR 0.48 MG/DL (0.55-1.30); ETHYL ALCOHOL (ETHANOL) < 0.003 % (0.000-0.010); GLOMERULAR FILTRATION RATE > 60.0 (>51); GLUCOSE, FASTING 134 MG/DL (70-100); MB/CK RELATIVE INDEX 8.27 (< OR =4); POTASSIUM SERUM 4.8 MEQ/L (3.5-5.1); SODIUM LEVEL 135 MEQ/L (136-145); TOTAL PROTEIN 7.9 GM/DL (6.4-8.2); TROPONIN I 0.35 NG/ML (< 0.10)
[2021-05-10] MEDS ORDERED: ASPIRIN 81 MG CHEW TABLET As Ordered ONE (21:12)
[2021-05-10] MEDS ORDERED: ASPIRIN 81 MG CHEW TABLET PO ONE (21:15)
[2021-05-11 00:01] VITALS: BP 118/69
--- NOTE | 2021-05-11 08:06 | ECGEPIP ---
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
== END 2021-05-11 00:01 | disposition home or self-care (01) ==
LOC: M ED 16:50 → EDBD 16:50 → M ED 05-11 00:01
DX: I20.0 Unstable angina (principal); R07.9 Chest pain, unspecified; R79.89 Other specified abnormal findings of blood chemistry; R00.0 Tachycardia, unspecified; F10.10 Alcohol abuse, uncomplicated; F17.200 Nicotine dependence, unspecified, uncomplicated; Z79.899 Other long term (current) drug therapy; Z88.0 Allergy status to penicillin; Z88.6 Allergy status to analgesic agent

== ENCOUNTER → 2021-05-19 | Outpatient (CLI) | payer OTHER, MEDICAID ==
[2021-05-19 15:55] LABS: ALBUMIN 2.4 GM/DL (3.2-5.2); ALT/SGPT 272 U/L (12-78); BILIRUBIN,TOTAL 0.8 MG/DL (0.2-1.0); BLOOD UREA NITROGEN 6 MG/DL (7-18); CALCIUM LEVEL 7.9 MG/DL (8.5-10.1); CARBON DIOXIDE LEVEL 24 MEQ/L (21-32); CHLORIDE LEVEL 105 MEQ/L (98-107); CREATININE FOR GFR 0.43 MG/DL (0.55-1.30); FERRITIN 674 NG/ML (8-252); GLOMERULAR FILTRATION RATE > 60.0 (>51); GLUCOSE, FASTING 124 MG/DL (70-100); IRON (FE) 153 UG/DL (50-170); PERCENT SATURATION 68.6 % (13.2-45.0); POTASSIUM SERUM 3.8 MEQ/L (3.5-5.1); SODIUM LEVEL 139 MEQ/L (136-145); TOTAL IRON BINDING CAPACITY 223 UG/DL (250-450); TOTAL PROTEIN 5.8 GM/DL (6.4-8.2)
[2021-05-22 20:07] LABS: ALPHA 1 ANTITRYPSIN 167 mg/dL (101-187); ANA (HEP2) Negative (.); ANTI-MITOCHONDRIAL ANTIBODY <20.0 Units (0.0-20.0); CERULOPLASMIN 17.8 mg/dL (19.0-39.0)
== END ==
LOC: M PLALAB 11:22
PROVIDERS: ATTEND Student in an Organized Health Care Education/Training Program
DX: B19.20 Unspecified viral hepatitis C without hepatic coma (principal)

== ENCOUNTER 2021-06-05 17:37 | Emergency (ER) | payer MEDICAID, OTHER ==
[~2021-06-05] VITALS: Ht 157.5 cm; Wt 59.0 kg
--- NOTE | 2021-06-05 19:35 | REP ---
INDICATION: Altered Mental Status COMPARISON: 05/10/2021 TECHNIQUE: Portable AP view of the chest FINDINGS: The mediastinum and cardiac silhouette are stable and within normal limits for portable technique. The lung rodrigez are clear without acute consolidation, effusion, or pneumothorax. Skeletal structures are intact. IMPRESSION: No acute cardiopulmonary process appreciated. <Electronically signed by Blake Mack > 06/05/211930
[2021-06-05 20:10] LABS: BASO % 0.8 % (0.0-1.0); HEMATOCRIT 38.7 % (36.0-47.0); HEMOGLOBIN 13.4 g/dl (12.0-15.5); LYMPH # 1.8 10^3/uL (1.5-5.0); LYMPH % 47.7 % (24.0-44.0); MEAN CORPUSCULAR HEMOGLOBIN 32.5 pg (27.0-33.0); MEAN CORPUSCULAR HGB CONC 34.6 g/dl (32.0-36.5); MEAN CORPUSCULAR VOLUME 93.9 fl (80.0-96.0); MONO # 0.3 10^3/uL (0.0-0.8); MONO % 7.3 % (2.0-8.0); NEUTROPHILS # 1.7 10^3/uL (1.5-8.5); NEUTROPHILS % 42.9 % (36.0-66.0); PLATELET COUNT, AUTOMATED 155 10^3/uL (150-450); RED BLOOD COUNT 4.12 10^6/uL (4.00-5.40); WHITE BLOOD COUNT 3.8 10^3/uL (4.0-10.0)
--- NOTE | 2021-06-05 20:10 | REPVR ---
PROCEDURE INFORMATION: Exam: CT Head Without Contrast Exam date and time: 06/05/2021 7:14 PM Age: 56 years old Clinical indication: Altered mental status/memory loss TECHNIQUE: Imaging protocol: Computed tomography of the head without contrast. Radiation optimization: All CT scans at this facility use at least one of these dose optimization techniques: automated exposure control; mA and/or kV adjustment per patient size (includes targeted exams where dose is matched to clinical indication); or iterative reconstruction. COMPARISON: CT Head without contrast 11/16/2017 4:53 AM FINDINGS: Brain: There is volume loss. There is mild periventricular white matter lucency most consistent with chronic microvascular disease. There is no infarct. There is no hemorrhage or extra-axial collection. There is no mass. Cerebral ventricles: No ventriculomegaly. Paranasal sinuses: Visualized sinuses are unremarkable. No fluid levels. Mastoid air cells: Visualized mastoid air cells are well aerated. Bones/joints: Unremarkable. No acute fracture. Soft tissues: Unremarkable. IMPRESSION: 1. Volume loss and mild chronic microvascular disease. 2. No intracranial lesion or injury and no change from prior scan Electronically signed by: Lanre Clemons On 06/05/2021 20:09:37 PM
--- NOTE | 2021-06-05 20:13 | REPVR ---
PROCEDURE INFORMATION: Exam: CT Cervical Spine Without Contrast Exam date and time: 06/05/2021 7:14 PM Age: 56 years old Clinical indication: Other: Altered mental status TECHNIQUE: Imaging protocol: Computed tomography images of the cervical spine without contrast. Radiation optimization: All CT scans at this facility use at least one of these dose optimization techniques: automated exposure control; mA and/or kV adjustment per patient size (includes targeted exams where dose is matched to clinical indication); or iterative reconstruction. COMPARISON: CT Spine,cervical w/o contrast 11/16/2017 4:53 AM FINDINGS: Bones/joints: There is no fracture of the cervical spine. The vertebral bodies maintain their height and alignment. There is no fracture of the posterior elements. Discs/Spinal canal/Neural foramina: There is no central stenosis in the cervical spine. There is foraminal stenosis on the left at C3-C4 and on the right at C4-C5. Lungs: Lung apices are normal. Soft tissues: Unremarkable. IMPRESSION: No fracture of the cervical spine Electronically signed by: Lanre Clemons On 06/05/2021 20:13:22 PM
[2021-06-05 20:36] LABS: ACETAMINOPHEN LEVEL < 2.0 UG/ML (10.0-30.0); ALBUMIN 2.3 GM/DL (3.2-5.2); ALT/SGPT 107 U/L (12-78); BILIRUBIN,DIRECT 0.3 MG/DL (0.0-0.2); BILIRUBIN,TOTAL 0.5 MG/DL (0.2-1.0); BLOOD UREA NITROGEN 5 MG/DL (7-18); CALCIUM LEVEL 7.8 MG/DL (8.5-10.1); CARBON DIOXIDE LEVEL 26 MEQ/L (21-32); CHLORIDE LEVEL 113 MEQ/L (98-107); CK-MB VALUE MASS < 1.0 NG/ML (<3.6); CPK CREATINE PHOSPHOKINASE 25 U/L (26-192); CREATININE FOR GFR 0.42 MG/DL (0.55-1.30); GLOMERULAR FILTRATION RATE > 60.0 (>51); GLUCOSE, FASTING 87 MG/DL (70-100); POTASSIUM SERUM 3.7 MEQ/L (3.5-5.1); SALICYLATE LEVEL 2.9 MG/DL (5.0-30.0); SODIUM LEVEL 144 MEQ/L (136-145); TOTAL PROTEIN 6.5 GM/DL (6.4-8.2); TROPONIN I < 0.02 NG/ML (< 0.10)
[2021-06-05 20:58] LABS: AMPHETAMINES LEVEL URINE NEGATIVE (NEGATIVE); BARBITURATES URINE NEGATIVE (NEGATIVE); BENZODIAZEPINES URINE NEGATIVE (NEGATIVE); CANNABINOIDS URINE NEGATIVE (NEGATIVE); COCAINE METABOLITE URINE NEGATIVE (NEGATIVE); METHADONE URINE NEGATIVE (NEGATIVE); OPIATES URINE NEGATIVE (NEGATIVE); PHENCYCLIDINE URINE NEGATIVE (NEGATIVE)
[2021-06-06 01:15] VITALS: BP 148/85
--- NOTE | 2021-06-06 21:36 | ECGEPIP ---
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
== END 2021-06-06 01:17 | disposition home or self-care (01) ==
LOC: M ED 17:37
DX: F10.20 Alcohol dependence, uncomplicated (principal); F10.129 Alcohol abuse with intoxication, unspecified; J45.909 Unspecified asthma, uncomplicated; Z79.899 Other long term (current) drug therapy; Z88.0 Allergy status to penicillin; Z88.6 Allergy status to analgesic agent

== ENCOUNTER 2021-09-13 10:43 | Emergency (ER) | payer OTHER ==
[~2021-09-13] VITALS: Ht 160 cm; Wt 55.1 kg
[~2021-09-13 10:43] MED LIST changes: -LISI-898 PO; +LISI5TAB11 PO
[2021-09-13] MEDS ORDERED: PRED20TA PO (14:05)
[2021-09-13] MEDS ORDERED: predniSONE 20 MG TAB PO ONE (14:05)
[2021-09-13 14:22] VITALS: BP 145/81
== END 2021-09-13 14:31 | disposition home or self-care (01) ==
LOC: M ED 10:43
DX: J20.9 Acute bronchitis, unspecified (principal); J44.9 Chronic obstructive pulmonary disease, unspecified; I10 Essential (primary) hypertension; F10.20 Alcohol dependence, uncomplicated; Z86.19 Personal history of other infectious and parasitic diseases; F17.200 Nicotine dependence, unspecified, uncomplicated; Z88.0 Allergy status to penicillin; Z88.6 Allergy status to analgesic agent

== ENCOUNTER 2021-10-17 19:04 | Emergency (ER) | payer OTHER ==
[~2021-10-17] VITALS: Ht 157.5 cm; Wt 56.5 kg
[2021-10-17 19:06] VITALS: BP 146/77
== END 2021-10-17 19:15 | disposition left against medical advice (07) ==
LOC: M ED 19:04
DX: Z53.21 Procedure and treatment not carried out due to patient leaving prior to being seen by health care provider (principal)

== ENCOUNTER → 2021-12-12 | Outpatient (REF) | LOC: M PLAIMG 15:35 | PROVIDERS: ATTEND Internal Medicine | DX: M47.816 Spondylosis without myelopathy or radiculopathy, lumbar region (principal) ==

== ENCOUNTER → 2022-05-08 | Outpatient (CLI) | payer MEDICAID, OTHER ==
[~2022-05-08] MED LIST changes: +ALBU6.7H6 INH; -PROV108A INH
== END ==
LOC: M RAD 16:33
PROVIDERS: ATTEND Physician Assistant
DX: R05.9 Cough, unspecified (principal)

== ENCOUNTER → 2023-07-24 | Outpatient (REF) | payer OTHER ==
[2023-07-24 12:13] LABS: ALKALINE PHOSPHATASE 139 U/L (46-116); ALT/SGPT 128 U/L (7.0-40); AST/SGOT 201 U/L (<34); BILIRUBIN,TOTAL 1.2 MG/DL (0.3-1.2); BLOOD UREA NITROGEN 11 MG/DL (9-23); CALCIUM LEVEL 8.7 MG/DL (8.5-10.1); CARBON DIOXIDE LEVEL 27 MMOL/L (20-31); CHLORIDE LEVEL 107 MMOL/L (98-107); CHOLESTEROL LEVEL 151 MG/DL (<200); CHOLESTEROL RISK RATIO 6.31 (<5); GLOMERULAR FILTRATION RATE > 60.0 (>51); GLUCOSE, FASTING 168 MG/DL (60-100); HDL CHOLESTEROL 23.9 MG/DL (>40); LDL CHOLESTEROL 103.9 MG/DL (<100); NON-HDL-C 127.1 MG/DL; POTASSIUM SERUM 4.4 MMOL/L (3.5-5.1); SODIUM LEVEL 142 MMOL/L (136-145); TOTAL PROTEIN 7.2 G/DL (5.7-8.2); TRIGLYCERIDES LEVEL 116 MG/DL (<150)
[2023-07-24 12:16] LABS: THYROID STIMULATING HORMONE 3.095 uIU/ML (0.55-4.78)
[2023-07-24 12:48] LABS: HEMOGLOBIN A1c 4.6 % (4.0-6.0)
== END ==
LOC: M LAB REF 11:32
PROVIDERS: ATTEND Family Medicine Addiction Medicine
DX: R73.03 Prediabetes (principal)

== ENCOUNTER → 2023-08-02 | Outpatient (CLI) | payer OTHER ==
[2023-08-02 10:05] LABS: BASO # 0.1 10^3/uL (0.0-0.2); BASO % 1.1 % (0.0-1.0); EOS # 0.1 10^3/uL (0.0-0.5); HEMATOCRIT 41.8 % (36.0-47.0); HEMOGLOBIN 14.3 g/dl (12.0-15.5); LYMPH # 2.8 10^3/uL (1.5-5.0); MEAN CORPUSCULAR HEMOGLOBIN 31.6 pg (27.0-33.0); MEAN CORPUSCULAR HGB CONC 34.2 g/dl (32.0-36.5); MEAN CORPUSCULAR VOLUME 92.5 fl (80.0-96.0); MONO # 0.3 10^3/uL (0.0-0.8); MONO % 5.7 % (2.0-8.0); NEUTROPHILS # 2.3 10^3/uL (1.5-8.5); PLATELET COUNT, AUTOMATED 132 10^3/uL (150-450); RED BLOOD COUNT 4.52 10^6/uL (4.00-5.40); WHITE BLOOD COUNT 5.6 10^3/uL (4.0-10.0)
[2023-08-02 10:33] LABS: FERRITIN 311.3 NG/ML (7.3-270.7)
[2023-08-02 10:38] LABS: HEPATITIS B SURFACE ANTIBODY NEGATIVE (POSITIVE)
[2023-08-04 07:07] LABS: CERULOPLASMIN 22.4 mg/dL (19.0-39.0); HEPATITIS A IgG TOTAL Positive (Negative)
== END ==
LOC: M LAB 08:56
PROVIDERS: ATTEND Family Medicine Addiction Medicine
DX: R74.01 Elevation of levels of liver transaminase levels (principal)

== ENCOUNTER → 2023-08-08 | Outpatient (CLI) | payer MEDICAID, OTHER | LOC: M WHC 13:06 | PROVIDERS: ATTEND Family Medicine Addiction Medicine | DX: Z12.31 Encounter for screening mammogram for malignant neoplasm of breast (principal) ==

== ENCOUNTER → 2023-08-28 | Outpatient (CLI) | payer OTHER | LOC: M WHC 12:44 | PROVIDERS: ATTEND Family Medicine Addiction Medicine | DX: R92.8 Other abnormal and inconclusive findings on diagnostic imaging of breast (principal); N63.20 Unspecified lump in the left breast, unspecified quadrant ==

== ENCOUNTER → 2023-12-06 | Outpatient (CLI) | payer OTHER ==
[2023-12-06 15:41] LABS: BASO % 0.8 % (0.0-1.0); EOS # 0.1 10^3/uL (0.0-0.5); EOS % 1.6 % (0.0-3.0); HEMATOCRIT 44.9 % (36.0-47.0); HEMOGLOBIN 15.3 g/dl (12.0-15.5); LYMPH # 2.3 10^3/uL (1.5-5.0); LYMPH % 45.1 % (24.0-44.0); MEAN CORPUSCULAR HEMOGLOBIN 32.3 pg (27.0-33.0); MEAN CORPUSCULAR HGB CONC 34.1 g/dl (32.0-36.5); MEAN CORPUSCULAR VOLUME 94.7 fl (80.0-96.0); MONO # 0.4 10^3/uL (0.0-0.8); NEUTROPHILS # 2.3 10^3/uL (1.5-8.5); NEUTROPHILS % 44.3 % (36.0-66.0); PLATELET COUNT, AUTOMATED 151 10^3/uL (150-450); RED BLOOD COUNT 4.74 10^6/uL (4.00-5.40); WHITE BLOOD COUNT 5.1 10^3/uL (4.0-10.0)
[2023-12-06 15:45] LABS: ERYTHROCYTE SEDIMENTATION RATE 39 mm/hr (0-30)
[2023-12-06 16:08] LABS: RHEUMATOID FACTOR QUANT 9.2 IU/ML (<14)
[2023-12-06 16:09] LABS: ALKALINE PHOSPHATASE 189 U/L (46-116); ALT/SGPT 155 U/L (7.0-40); AST/SGOT 211 U/L (<34); BILIRUBIN,TOTAL 1.1 MG/DL (0.3-1.2); BLOOD UREA NITROGEN 10 MG/DL (9-23); CALCIUM LEVEL 9.4 MG/DL (8.5-10.1); CARBON DIOXIDE LEVEL 27 MMOL/L (20-31); CHLORIDE LEVEL 108 MMOL/L (98-107); CREATININE FOR GFR 0.69 MG/DL (0.55-1.30); GLOMERULAR FILTRATION RATE > 60.0 (>51); GLUCOSE, FASTING 145 MG/DL (60-100); POTASSIUM SERUM 3.6 MMOL/L (3.5-5.1); SODIUM LEVEL 140 MMOL/L (136-145); TOTAL PROTEIN 7.5 G/DL (5.7-8.2)
[2023-12-06 16:10] LABS: FOLATE 21.5 NG/ML (>5.4); THYROID STIMULATING HORMONE 2.369 uIU/ML (0.55-4.78)
[2023-12-06 16:11] LABS: VITAMIN B12 LEVEL 1003 PG/ML (211-911)
[2023-12-06 16:17] LABS: HEMOGLOBIN A1c 4.7 % (4.0-6.0)
== END ==
LOC: M PLALAB 13:11
PROVIDERS: ATTEND Psychiatry & Neurology Neurology
DX: R41.9 Unspecified symptoms and signs involving cognitive functions and awareness (principal)